=== PATIENT | female | born 1950 | race Caucasian/White ===

== ENCOUNTER 2018-04-24 11:10 | Emergency (ER) | payer MEDICARE, BC ==
[~2018-04-24] VITALS: Ht 157.5 cm; Wt 90.0 kg
[2018-04-24 12:48] LABS: BASOPHILS % (AUTO) 0.4 % (0-1); EOSINOPHILS # (AUTO) 0.2 X10'3 (0-0.9); EOSINOPHILS % (AUTO) 1.5 % (0-6); HEMATOCRIT 38.4 % (35.0-45.0); HEMOGLOBIN 12.8 g/dl (12.0-16.0); LYMPHOCYTES # (AUTO) 1.4 X10'3 (1.1-4.8); LYMPHOCYTES % (AUTO) 12.8 % (21-51); MEAN CORPUSCULAR HEMOGLOBIN 28.1 PG (27.0-31.0); MEAN CORPUSCULAR HGB CONC 33.2 % (33.0-36.5); MEAN CORPUSCULAR VOLUME 84.6 FL (78-98); MONOCYTES % (AUTO) 9.3 % (2-12); NEUTROPHILS # (AUTO) 8.4 X10'3 (1.8-7.7); PLATELET COUNT 516 X10'3 (140-440); RED BLOOD COUNT 4.54 X10'6 (4.20-5.60); RED CELL DISTRIBUTION WIDTH 15.8 % (11.5-14.5); WHITE BLOOD COUNT 11.1 X10'3 (4.5-11.0)
[2018-04-24 13:02] LABS: ALANINE AMINOTRANSFERASE 20 U/L (12-78); ALBUMIN 3.7 G/DL (3.4-5.0); ALBUMIN/GLOBULIN RATIO 0.9 (1.1-1.5); ALKALINE PHOSPHATASE 81 IU/L (46-116); ANION GAP 13 (8-16); ASPARTATE AMINO TRANSFERASE 21 U/L (10-37); BILIRUBIN,TOTAL 0.4 MG/DL (0.1-1.0); BLOOD UREA NITROGEN 16 MG/DL (7-18); BUN/CREATININE RATIO 20.5 (6.6-38.0); CALCIUM 9.2 MG/DL (8.5-10.1); CHLORIDE 96 MMOL/L (99-107); CREATININE 0.78 MG/DL (0.40-0.90); GLUCOSE 97 MG/DL (70-104); SODIUM 132 MMOL/L (135-145); TOTAL CARBON DIOXIDE 23.4 MMOL/L (24-32); eGFR 74 ML/MIN
[2018-04-24] MEDS ORDERED: normal saline 1000ML IV soln IVB ONE (13:10)
[2018-04-24 13:12] LABS: ETHANOL < 0.010 GM/DL (0.0-0.010)
[2018-04-24 15:05] LABS: CLARITY,URINE CLEAR (Clear); COLOR,URINE YELLOW (Yellow); GLUCOSE, URINE NEGATIVE (Neg); KETONES,URINE TRACE mg/dl (Neg); LEUKOCYTE ESTERASE ,URINE NEGATIVE (Neg); NITRITES, URINE NEGATIVE (Neg); OCCULT BLOOD,URINE NEGATIVE (Neg); PROTEIN,URINE NEGATIVE (Neg); UROBILINOGEN,URINE 0.2 E.U/dL (0.2-1.0)
[2018-04-24 15:06] LABS: UA COLLECTION TYPE CLN CATCH MIDSTREAM
[2018-04-24 15:46] LABS: URINE AMPHETAMINE SCREEN NEGATIVE (Neg); URINE BARBITUATE SCREEN NEGATIVE (Neg); URINE BENZODIAZEPINES SCREEN NEGATIVE (Neg); URINE CANNABINOID SCREEN NEGATIVE (Neg); URINE COCAINE SCREEN NEGATIVE (Neg); URINE METHADONE SCREEN NEGATIVE (Neg); URINE PHENCYCLIDINE SCREEN NEGATIVE (Neg)
[2018-04-24 15:47] LABS: URINE OPIATE SCREEN NEGATIVE (Neg)
[2018-04-24 17:28] LABS: VALPROATE 50 UG/ML (50-100)
[2018-04-24] MEDS ORDERED: LORazepam 2 mg/ml vial IV ONE (18:10)
[2018-04-24] MEDS ORDERED: ziprasidone 20mg capsule PO SCH (21:00)
[2018-04-25 05:13] VITALS: BP 115/68
[2018-04-25] MEDS ORDERED: divalproex sodium 500mg tablet.DR PO SCH (08:30)
[2018-04-25] MEDS ORDERED: ZIPR60CA2 PO (09:38)
[2018-04-25] MEDS ORDERED: DIVA-76 PO (09:38)
[2018-04-25] MEDS ORDERED: [UNRECOGNIZED DRUG - OTHER] VG (09:40)
[2018-04-25] MEDS ORDERED: LEVO75TA56 PO (09:43)
[2018-04-25] MEDS ORDERED: LEVO1CAP PO (09:43)
[2018-04-25] MEDS ORDERED: PROP10TA10 PO (09:56)
[2018-04-25] MEDS ORDERED: OLAN10TA3 PO (09:57)
== END 2018-04-25 11:21 ==
LOC: ER 11:10
DX: R42 Dizziness and giddiness (principal); T43.595A Adverse effect of other antipsychotics and neuroleptics, initial encounter; R41.0 Disorientation, unspecified; R44.3 Hallucinations, unspecified; F31.9 Bipolar disorder, unspecified; G89.29 Other chronic pain; Z88.0 Allergy status to penicillin; Z79.899 Other long term (current) drug therapy; Y92.89 Other specified places as the place of occurrence of the external cause
CPT/HCPCS: 36415; 80053; 80164; 80305; 80320; 81003; 82948; 84443; 85025; 96361; 96374; 99285; J2060; J7030

== ENCOUNTER 2018-04-25 08:50 | Inpatient (IN) | payer MEDICARE, BC ==
[~2018-04-25] VITALS: Ht 157.5 cm; Wt 80.9 kg
[2018-04-25] MEDS ORDERED: ZIPR60CA2 PO (09:38)
[2018-04-25] MEDS ORDERED: DIVA-76 PO (09:38)
[2018-04-25] MEDS ORDERED: [UNRECOGNIZED DRUG - OTHER] VG (09:40)
[2018-04-25] MEDS ORDERED: LEVO1CAP PO (09:43)
[2018-04-25] MEDS ORDERED: LEVO75TA56 PO (09:43)
[2018-04-25] MEDS ORDERED: PROP10TA10 PO (09:56)
[2018-04-25] MEDS ORDERED: OLAN10TA3 PO (09:57)
[2018-04-25] MEDS ORDERED: tuberculin, purif. prot. deriv. 5 units/0.1ml ID ONE (11:35)
[2018-04-25] MEDS ORDERED: acetaminophen 325mg tablet PO PRN ×2 (11:35)
[2018-04-25] MEDS ORDERED: magnesium hydroxide 30ml (MOM) UD suspension PO PRN (11:35)
[2018-04-25] MEDS ORDERED: mag hydrox/Alum hydrox/simeth 30ml oral suspension PO PRN (11:35)
--- NOTE | 2018-04-25 12:28 | NUR ---
The patient, MASTERS,MADHAVI Collins, 68 y/o, F admitted by ALEKSANDER REYNOLDS MD, was given written mental health rights. Pt admitted at 11:15. PT here for Anxiety, psychosis, Depression. Pt makes statements "Im not feeling well, scared, I feel weird, I dont understand." PT was discharged from [facility] on . Pt had some med changes while admitted there voluntarily. Pt signs in voluntarily here. Pt has history of Bipolar, depression,anxiety.
--- NOTE | 2018-04-25 13:32 | NUR ---
SW1:1 The undersigned spent time with the client as she was in bed shaking and reported being "scared". she expressed that she has no hope for life and wanting her life to "stop". The undersigned used quiet reassurance, grounding and present moment thought reframing with the client to attempt to lower her anxiety. The undersigned also put two warm blankets over her and brought her a pillow. The client demonstrated some insight by saying that only Gos can take her life, and she was able to cry in a response of suggesting her to "feel her suffering". Mei Liu [facility]
[2018-04-25 15:15] VITALS: BP 139/80
[2018-04-25] MEDS ORDERED: divalproex sodium 500mg tablet.DR PO SCH (20:00)
[2018-04-25] MEDS: ziprasidone 20mg capsule PO SCH (20:41)
[2018-04-25] MEDS ORDERED: OLANZapine 2.5MG tablet PO SCH (21:00)
[2018-04-25] MEDS ORDERED: divalproex sodium 250mg tablet PO ONE (21:45)
[2018-04-25] MEDS ORDERED: olanzapine 10mg tablet PO ONE (21:45)
--- NOTE | 2018-04-26 02:37 | NUR ---
Chief Complaint Pt makes statements "Im not feeling well, scared, I feel weird, I dont understand." Pt has history of Bipolar, depression,anxiety. Legal hold: Voluntary Client on voluntary DTS Report received from Siddharth marte with use of SBAR Why are they here: Diagnosis/presenting symptoms: PT here for Anxiety, psychosis, Depression. Assessment What has happened this shift: Pt visited for an hour with . very attentive pt appears anxious is tearful at times. Dr. Pugh spoke to and pt. 1:1 in pt room she remains anxious eyes wide open wringing hands. Pt verbalized hopelessness and said "I don't to live but I would never do anything because of god." Pt had some tremors when reaching for objects. Pt denies being aware of how long she had tremors. S/I, A/VH: denies Sleep: Sleeping at this time ADL's: independent Group attendance: none Were meds taken: yes Any med S/E none Mental Status Exam Appearance:well groomed Eye contact:poor Behavior:anxious Speech: pressured Mood:depressed Affect: anxious Thought process: Thought Content:logical Cognition:WNL Insight: fair Judgment:fair Interventions PRN's used: x1 xtra dose zyprexa for sleep. Therapeutic interventions: 1:1 allow pt to express feelings. Education on relaxation techniques to facilitate sleep. Q15 min safety checks. Restraints/seclusion/emergency medication: none Justification of Continued Inpatient Treatment: Pt anxious depressed verbalizing SI.
[2018-04-26] MEDS: levoTHYROXINE 75mcg tablet PO SCH (07:21)
[2018-04-26 08:00] VITALS: BP 136/78
[2018-04-26] MEDS: LEVOMEFOLATE PO SCH (08:00)
[2018-04-26] MEDS: ALGAL OIL PO SCH (08:00)
[2018-04-26] MEDS: divalproex sodium 250mg tablet PO SCH ×2 (08:10→20:39)
[2018-04-26 10:10] LABS: CHOL/HDL RATIO 5.7 (0.00-4.99); CHOLESTEROL 325 MG/DL (0-200); HDL CHOLESTEROL 57 MG/DL (35-60); LDL CHOLESTEROL 224 MG/DL (50-100); TRIGLYCERIDES 210 MG/DL (20-135)
--- NOTE | 2018-04-26 15:34 | NUR ---
Nursing Progress Note: Chief Complaint: Patient states passive suicidal ideation. She no longer wants to live due to hopelessness and helplessness "There are no positives anymore." Legal hold:none Client on voluntary status for DTS Report received from Divine marte with use of SBAR. Why are they here:Patient is severly depressed and has given up all hope of relief from her bipolar symptoms. Diagnosis/presenting symptoms: Bipolar, low energy, hopeless, helpless Assessment What has happened this shift:patient participated in assessment for some time and then became irritated stating. "No questions anymore. No more questions." S/I, H/I:passive SI A/VH: denies Sleep:several naps ADL's: Able to perform independently Group attendance:"I dont want to go to group. It doesn't help." Were meds taken:Yes Any med S/E: no Mental Status Exam Appearance:clean and neat, appears younger than sated age Eye contact:poor Behavior: Isolates in room. Talks to self. Speech:Soft Mood:Depressed, hopeless, helpless Affect:flat Thought process: linear Thought Content:hopeless, helpless Cognition:intact Insight:poor Judgment:poor Interventions PRN's used:none Therapeutic interventions:Q15 interventions, one to one assessment, medication education, active listening, milieu Restraints/seclusion/emergency medication:none Justification of Continued Inpatient Treatment: observation and medication adjustment
--- NOTE | 2018-04-26 17:39 | NUR ---
AA (Activity Assessment) was completed by the undersigned. Patient was compliant yet presented as if answering the questions was overwhelming, admitting "I am having difficulty focusing right now." Tova Buchanan M.A., TRIMMING ASSEMBLER #[id number] [facility] Art Therapist Addendum: 04/26/18 at 1742 by Tova Buchanan SS Amended: Links added.
[2018-04-26 20:00] VITALS: BP 123/80
[2018-04-26] MEDS: ziprasidone 20mg capsule PO SCH (20:39)
[2018-04-26] MEDS: OLANZapine 2.5MG tablet PO SCH (20:39)
[2018-04-26] MEDS ORDERED: OLANZapine 2.5MG tablet PO ONE ×2 (22:05→23:05)
--- NOTE | 2018-04-27 05:50 | NUR ---
Chief Complaint Pt makes statements "Im not feeling well, scared, I feel weird, I dont understand." Pt has history of Bipolar, depression,anxiety. Legal hold: Voluntary Client on voluntary DTS Report received from Siddharth marte with use of SBAR Why are they here: Diagnosis/presenting symptoms: PT here for Anxiety, psychosis, Depression. Assessment Pt appeared slightly more relaxed this shift. Pt visited for an hour with . very attentive pt appears anxious is tearful at times. 1:1 in pt room Pt verbalized hopelessness she does not think anything is going to make her feel better. She is tired of living with her bipolar but she is going to keep trying "what choice do I have" S/I, A/VH: denies Sleep: Sleeping at this time ADL's: independent Group attendance: none Were meds taken: yes Any med S/E none Mental Status Exam Appearance:well groomed Eye contact:poor Behavior:anxious Speech: pressured Mood:depressed Affect: anxious Thought process: Thought Content:logical Cognition:WNL Insight: fair Judgment:fair Interventions PRN's used: x2 xtra dose zyprexa for sleep. Therapeutic interventions: 1:1 allow pt to express feelings. Education on relaxation techniques to facilitate sleep. Q15 min safety checks. Restraints/seclusion/emergency medication: none Justification of Continued Inpatient Treatment: Pt anxious depressed verbalizing SI.
[2018-04-27 07:00] VITALS: BP 140/70
[2018-04-27] MEDS: LEVOMEFOLATE PO SCH (07:20)
[2018-04-27] MEDS: ALGAL OIL PO SCH (07:20)
[2018-04-27] MEDS: divalproex sodium 250mg tablet PO SCH ×2 (08:05→21:08)
[2018-04-27] MEDS: levoTHYROXINE 75mcg tablet PO SCH (08:06)
--- NOTE | 2018-04-27 13:35 | NUR ---
Nursing Progress Note: Chief Complaint: Loss of will to live, anxiety, passive suicidal ideation Legal hold:[VOL] Client on voluntary status for DTS Report received from nurse with use of SBAR[]. Yes, Katie Why are they here:[Passive suicidal ideation, anxiety]. Diagnosis/presenting symptoms:[Anxiety, suicidal ideation] Assessment What has happened this shift:[Patient continues to state suicidal ideation. "I am ready to go home to be with God. I don't awnt to be here anymore. Nothing helps" Asked connien if she would attempt to harm herself "Not while I am here."] S/I, H/I:[SI] A/VH: [NO] Sleep:[Poor] ADL's:[Not showering or changhing clothes] Group attendance:[NO "It doesn't help"] Were meds taken:[YES] Any med S/E[NO] Mental Status Exam Appearance:[Terrified, Anxious, Depressed] Eye contact:[Fair] Behavior:[Anxious] Speech:[Poverty] Mood:[Depressed, anxious] Affect:[Flat] Thought process:[[place]] Thought Content:[SI] Cognition:[Intact] Insight:[Poor] Judgment:[Poor] Interventions PRN's used:[NO] Therapeutic interventions:[Active listening, one to one assessment, Q15s, educate on coping skills and self care] Restraints/seclusion/emergency medication:[NO] Justification of Continued Inpatient Treatment:[Medication adjustments and observation and safety]
[2018-04-27 20:08] VITALS: BP 133/81
[2018-04-27] MEDS: ziprasidone 20mg capsule PO SCH (21:07)
[2018-04-27] MEDS: OLANZapine 2.5MG tablet PO SCH (21:07)
[2018-04-28] MEDS ORDERED: OLANZapine 2.5MG tablet PO ONE (00:15)
--- NOTE | 2018-04-28 02:54 | NUR ---
Nursing Progress Note: Chief Complaint Pt makes statements about not wanting to live. Pt has history of Bipolar, depression,anxiety. Legal hold: Voluntary Client on voluntary DTS Report received from Siddharth marte with use of SBAR Why are they here: Diagnosis/presenting symptoms: PT here for Anxiety, psychosis, Depression. Assessment What has happened this shift: Pt in bed at start of shift. Got up to visit for an hour with . Went right back to bed. 1:1 in pt room pt is very withdrawn no or one word responses to questions. Pt admitted to SI but did not answer questions about a plan. Encouraged pt to attend groups, no response. Given repeat x1 2.5 Zyprexa at HS for sleep. S/I, A/VH: denies Sleep: Sleeping at this time ADL's: independent Group attendance: none Were meds taken: yes Any med S/E none Mental Status Exam Appearance:well groomed Eye contact:poor Behavior:anxious Speech: pressured Mood:depressed Affect: anxious Thought process: Thought Content:logical Cognition:WNL Insight: fair Judgment:fair Interventions PRN's used: x1 repeat dose zyprexa for sleep. Therapeutic interventions: 1:1 Assess mood allow pt to express feelings. Q15 min safety checks. Restraints/seclusion/emergency medication: none Justification of Continued Inpatient Treatment: Pt anxious depressed verbalizing SI.
[2018-04-28 07:00] VITALS: BP 143/75
[2018-04-28] MEDS: levoTHYROXINE 75mcg tablet PO SCH (07:32)
[2018-04-28] MEDS: METHYLFOLATE 15 MG PO SCH (07:32)
[2018-04-28] MEDS: divalproex sodium 250mg tablet PO SCH (07:33)
--- NOTE | 2018-04-28 15:17 | NUR ---
Nursing Progress Note Chief Complaint: Patient discharged from [facility] in March, underwent medication changes and became destabilized. Legal hold: Voluntary Client on voluntary for DTS. Report received from Katie with use of SBAR. Why are they here: Safety and stabilization. Diagnosis/presenting symptoms: SI. Bipolar depression/delerium. Assessment What has happened this shift: Went into assess patient, bundled up in blankets, fearful appearance. Patient states that being in this dept. is a stressor. Patient refuses to answer questions. SW informed RN that patient asked her for poison today. S/I, H/I: Passive SI. A/VH: Denies. Sleep: States sleep disturbance. ADL's: Independent. Group attendance: None. Were meds taken: Compliant. Any med S/E None. Mental Status Exam Appearance: Obese, fearful appearing woman lying in bed. Eye contact: None. Behavior: Withdrawn, isolative. Speech: Clear, pressured. Mood: Fearful, anxious. Affect: Flat. Thought process: Constricted. Thought Content: SI. Cognition: Impaired. Insight: Impaired. Judgment: Impaired. Interventions PRN's used: None. Therapeutic interventions: 1:1 to assess for severity of symptoms. Medication administration and monitored for side effects to medications. q15" safety checks. Restraints/seclusion/emergency medication: None. Justification of Continued Inpatient Treatment: Patient verbalizes SI. Patient would be high risk of rehospitalization before stabilized.
[2018-04-28 20:02] VITALS: BP 103/62
[2018-04-28] MEDS: ziprasidone 20mg capsule PO SCH (20:27)
[2018-04-28] MEDS: OLANZapine 2.5MG tablet PO SCH (20:27)
[2018-04-28] MEDS: divalproex sod 125mg tablet.DR PO SCH (20:28)
--- NOTE | 2018-04-28 23:38 | NUR ---
Nursing Progress Note Chief Complaint: Pt BIB due to behavioral changes, pt is fearful and having passive s/i Legal hold: Voluntary Client on voluntary for DTS. Report received from Veronica FAITH Why are they here: Evaluation and stabilization Diagnosis/presenting symptoms: SI. Bipolar depression Assessment What has happened this shift: Pt was laying in bed at change of shift. 1:1 assessment completed at bedside. Pt reports not being able to eat because she hasnt been hungry for 3 days. Pt is concerned about not being able to sleep, pt was med compliant, observed q15 min for safety. S/I, H/I: pt denies A/VH: Denies. Sleep: pt is concerned she wont be able to sleep but fell asleep shortly after taking her nighttime medications. ADL's: Independent. Group attendance: None. Pt states "I didnt go because the doctor said I dont have to." Were meds taken: Compliant. Any med S/E None. none reported or observed Mental Status Exam Appearance: adequately groomed, Eye contact: good Behavior: Withdrawn, isolative. Speech: Clear, pressured. Mood: Fearful, anxious, depressed Affect: constricted Thought process: linear, guarded Thought Content: Pt is reluctant to talk stating "kwan already told everyone this." Cognition: Impaired. Insight: Impaired. Judgment: Impaired. Interventions PRN's used: None. Therapeutic interventions: 1:1 assessment, q15 min checks for safety. . Restraints/seclusion/emergency medication: None. Justification of Continued Inpatient Treatment: Patient would be high risk of rehospitalization Addendum: 04/29/18 at 0234 by Barbara Coon RN zyprexa repeat dose given as pt could not sleep.
[2018-04-29] MEDS ORDERED: OLANZapine 2.5MG tablet PO ONE (02:30)
[2018-04-29 06:49] VITALS: BP 160/80
[2018-04-29 07:00] VITALS: BP 161/81
[2018-04-29] MEDS: levoTHYROXINE 75mcg tablet PO SCH (07:25)
[2018-04-29] MEDS: divalproex sod 125mg tablet.DR PO SCH ×2 (07:25→20:21)
[2018-04-29] MEDS: METHYLFOLATE 15 MG PO SCH (07:49)
--- NOTE | 2018-04-29 15:53 | NUR ---
Nursing Progress Note Chief Complaint: Patient was admitted to [facility] about a month ago for bipolar symptoms and came out overmedicated and decompensated. She was then seen by Dr. Koch and was placed on "med holiday". She is now admitted for psychiatric stabilization. Legal hold: None. Client on voluntary status for GD/DTS. Report received from Tasha with use of SBAR. Why are they here: Safety and stabilization. Diagnosis/presenting symptoms: Bipolar/delerium. Assessment What has happened this shift: Patient stays in bed most of the day. She did get up and eat 75% of her lunch. She did sit in art therapy for 30 minutes today before returning to her room. S/I, H/I: Patient affirms that she is suicidal without plan. A/VH: Denies. Sleep: Awake during daytime. ADL's: Needs prompting. Group attendance: Sat in art therapy for 30 mins today. Were meds taken: Compliant. Any med S/E Patient has tremulousness, especially of right hand. Mental Status Exam Appearance: Short, obese woman with strawberry-blonde hair wearing green scrubs. Eye contact: Avoidance. Behavior: Primarily lays in bed. Speech: Soft. Mood: Depressed. Affect: Frightened. Thought process: Undetermined. Thought Content: SI. "I can't eat, I'm too fat". Cognition: Slowed. Impaired. Insight: Poor. Judgment: Impaired. Interventions PRN's used: None. Therapeutic interventions: 1:1 to assess for severity of symptoms. Medication administration and monitored for side effects. Q15" checks for patient safety. Restraints/seclusion/emergency medication: None. Justification of Continued Inpatient Treatment: Patient is suicidal, depressed, anxious and needs psychiatric stabilization. Patient would be at high risk for rehospitalization if discharged before stable.
[2018-04-29 19:00] VITALS: BP 114/68
[2018-04-29] MEDS: OLANZapine 2.5MG tablet PO SCH ×2 (20:21→21:17)
[2018-04-29] MEDS: ziprasidone 20mg capsule PO SCH (20:22)
--- NOTE | 2018-04-30 01:05 | NUR ---
Nursing Progress Note Chief Complaint: Pt BIB due to behavioral changes, pt is fearful and having passive s/i Legal hold: Voluntary Client on voluntary for DTS. Report received from Veronica FAITH Why are they here: Evaluation and stabilization Diagnosis/presenting symptoms: SI. Bipolar depression Assessment What has happened this shift: Pt was laying in bed at change of shift, 1:1 assessment completed at bedside. Pt appears anxious, when asked about her mood she shakes her head no and doesn't answer. Pt reports a poor appetite stating "I haven't been hungry since Zoey got here" Pt reports difficulty sleeping due to noise, she is trying ear plugs tonight. Pt denies s/i, is med compliant and observed q15 min for safety. Pt spent the evening visiting w/her . S/I, H/I: pt denies A/VH: Denies. Sleep: Pt reports she has not been sleeping well ADL's: Independent. Group attendance: No groups in the evening Were meds taken: Yes Any med S/E: None reported or observed Mental Status Exam Appearance: adequately groomed, Eye contact: good Behavior: Withdrawn, isolative. Speech: Clear, pressured. Mood: Fearful, anxious, depressed Affect: constricted Thought process: linear, thought blocking Thought Content: Cognition: Impaired. Insight: Impaired. Judgment: Impaired. Interventions PRN's used: none Therapeutic interventions: 1:1 assessment, q15 min checks for safety. . Restraints/seclusion/emergency medication: None. Justification of Continued Inpatient Treatment: Patient would be high risk of rehospitalization Addendum: 04/29/18 at 0234 by Barbara Coon RN zyprexa repeat dose given as pt could not sleep.
[2018-04-30 08:00] VITALS: BP 114/68
[2018-04-30] MEDS: METHYLFOLATE 15 MG PO SCH (08:03)
[2018-04-30] MEDS: divalproex sod 125mg tablet.DR PO SCH ×2 (08:03→20:31)
[2018-04-30] MEDS: levoTHYROXINE 75mcg tablet PO SCH (08:03)
--- NOTE | 2018-04-30 16:03 | NUR ---
Nursing Progress Note Chief Complaint: Patient was admitted to [facility] about a month ago for bipolar symptoms and came out overmedicated and decompensated. She was then seen by Dr. Koch and was placed on "med holiday". She is now admitted for psychiatric stabilization. Legal hold: None. Client on voluntary status for GD/DTS. Report received from Tasha with use of SBAR. Why are they here: Safety and stabilization. Diagnosis/presenting symptoms: Bipolar/delirium. Assessment What has happened this shift: Patient was asleep at change of shift. Patient appears anxious with eye wide open. Patient's hair is disheveled and patient stayed in her pajamas all day. Patient missed groups today and was in bed asleep. RN moved patient next door due to her original roommate being too loud. S/I, H/I: Patient states that she is suicidal without plan. Patient denies H/I. A/VH: Denies. Sleep: Pt napped morning and afternoon. ADL's: Needs prompting. Group attendance: Patient did not go to groups today. Were meds taken: Compliant. Any med S/E Patient has tremulousness, especially of right hand. Mental Status Exam Appearance: Short, obese woman with strawberry-blonde hair wearing flannel pajamas. Eye contact: Avoidance. Behavior: Primarily lays in bed. Speech: Soft. Mood: Depressed. Affect: Anxious. Thought process: Undetermined. Thought Content: SI. Cognition: Slowed. Impaired. Insight: Poor. Judgment: Impaired. Interventions PRN's used: None. Therapeutic interventions: 1:1 to assess for severity of symptoms. Medication administration and monitored for side effects. Q15" checks for patient safety. Restraints/seclusion/emergency medication: None. Justification of Continued Inpatient Treatment: Patient is suicidal, depressed, anxious and needs psychiatric stabilization. Patient would be at high risk for rehospitalization if discharged before stable.
[2018-04-30 20:00] VITALS: BP 122/72
[2018-04-30] MEDS: OLANZapine 2.5MG tablet PO SCH (20:31)
[2018-04-30] MEDS: ziprasidone 20mg capsule PO SCH (20:31)
--- NOTE | 2018-04-30 23:47 | NUR ---
Nursing Progress Note Chief Complaint: Pt BIB due to behavioral changes, pt is fearful and having passive s/i Legal hold: Voluntary Client on voluntary for DTS. Report received from Shae FAITH Why are they here: Evaluation and stabilization Diagnosis/presenting symptoms: SI. Bipolar depression Assessment What has happened this shift: Pt was laying in bed at change of shift, 1:1 assessment completed at bedside. Pt denies s/i, states "I am feeling a little better today. I feel like I have more energy today." Pt is hopeful that she will get better sleep tonight now that she has a new room. Pt states her goal here is to "balance out the bipolar" pt states she didnt go to groups today because "it doesnt seem to help." Suggested pt attempt to attend at least one group tomorrow. Pt reports she hasnt had much of an appetite since she's been here. Pt spent evening visiting w/her tonjaskaran. Pt was med compliant and observed q15 min for safety. S/I, H/I: pt denies A/VH: Denies. Sleep: Pt continues to report she hasnt been sleeping well ADL's: Independent. Group attendance: No groups in the evening Were meds taken: Yes Any med S/E: None reported or observed Mental Status Exam Appearance: adequately groomed, Eye contact: good Behavior: Isolates to her room unless visiting w/ in group room Speech: Clear, pressured. Mood: Fearful, anxious, depressed Affect: constricted Thought process: linear, thought blocking Thought Content: Cognition: Impaired. Insight: Impaired. Judgment: Impaired. Interventions PRN's used: none Therapeutic interventions: 1:1 assessment, q15 min checks for safety. . Restraints/seclusion/emergency medication: None. Justification of Continued Inpatient Treatment: Patient would be high risk of rehospitalization
[2018-05-01 08:00] VITALS: BP 132/73
[2018-05-01] MEDS: divalproex sod 125mg tablet.DR PO SCH ×2 (08:32→20:18)
[2018-05-01] MEDS: levoTHYROXINE 75mcg tablet PO SCH (08:32)
[2018-05-01] MEDS: METHYLFOLATE 15 MG PO SCH (08:39)
--- NOTE | 2018-05-01 11:14 | NUR ---
Pt admitted to [facility] for depression. 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 Currently on regular diet with documented PO intake 100% meeting nutrient needs. LBM 04/29. No edema or wounds. No nutrition diagnosis at this time. Will continue to follow. Recommendations: 1) Continue with regular diet 2) MVI, Thiamine, Folic acid for Etoh hx 3) Weekly wt Addendum: 05/01/18 at [address] Amended: Links added. Addendum: 05/01/18 at [address] Disregard. Wrong patient
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
--- NOTE | 2018-05-01 16:16 | NUR ---
Degreasing Wheel Operator 1:1 The undersigned social media specialist saw patient briefly up and walking and asked if I could meet with her after the group. After group went to meet with patient individually and patient declined wanting to meet today. Patient was laying in her bed in the dark with her eyes open. Plan= Collaborate with treatment team/ attempt to meet 1:1 on Thursday Demi DANIELS
[2018-05-01 19:00] VITALS: BP 112/75
[2018-05-01] MEDS: cloNIDine 0.1 mg tablet PO PRN (20:18)
[2018-05-01] MEDS: OLANZapine 2.5MG tablet PO SCH (20:18)
[2018-05-01] MEDS: ziprasidone 20mg capsule PO SCH (20:18)
[2018-05-01] MEDS ORDERED: OLANZapine 2.5MG tablet PO ONE (23:30)
--- NOTE | 2018-05-02 02:22 | NUR ---
RN progress note: Chief Complaint: "I was getting manic, so my brought me here." Legal hold: None Client on voluntary status for DTS. Report received from nurse Kaufman with use of SBAR. Why are they here: The patient was having mental and behavioral changes, so was brought in by to be evaluated and treated. Diagnosis/presenting symptoms:Bipolar with gelacio, paranoia, delirium, and possible effects from PTSD. Assessment: What has happened this shift: The patient was found in the hallway at her room. She agreed to 1:1 at her bedside while waiting for her . The patient initially agreed to talk to me, but was only able to answer closed ended questions due to thought blocking. She had a visit from her then went to bed. S/I, H/I: Passive SI. Denies HI. A/VH: Denies Sleep: Went to sleep after her 's visit. ADL's: independent with prompting. Group attendance: No groups tonight. Were meds taken: Compliant Any med S/E: None noted. Mental Status Exam Appearance: Short, overweight woman in street clothes that avoids eye contact and appears fearful. Eye contact: Poor Behavior: Standing in the hallway waiting for her to visit. Speech: Clear, low volume. Mood: Depressed Affect: Flat, constricted at times. Thought process: Blocked Thought Content: Preoccupied with going home, "where I can heal." Cognition: A/O x3 Insight: Poor Judgment: Intact Interventions PRN's used: Zyprexa for anxiety and insomnia. Therapeutic interventions: 1:1, positive reinforcement, medication administration, q15 minute visual checks. Restraints/seclusion/emergency medication: None. Justification of Continued Inpatient Treatment: The patient's response to medication changes is inconsistent, and she is not yet stable. She would be at risk for readmission if discharged before she is stabilized.
[2018-05-02 07:32] VITALS: BP 138/76
[2018-05-02] MEDS: levoTHYROXINE 75mcg tablet PO SCH (07:59)
[2018-05-02] MEDS: METHYLFOLATE 15 MG PO SCH (07:59)
[2018-05-02] MEDS: divalproex sod 125mg tablet.DR PO SCH ×2 (07:59→20:31)
[2018-05-02] MEDS: cloNIDine 0.1 mg tablet PO PRN ×2 (08:00→20:32)
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
--- NOTE | 2018-05-02 14:58 | NUR ---
Nursing Progress Note Chief Complaint: Patient was admitted to [facility] about a month ago for bipolar symptoms and came out overmedicated and decompensated. She was then seen by Dr. Koch and was placed on "med holiday". She is now admitted for psychiatric stabilization. Legal hold: None. Client on voluntary status for GD/DTS. Report received from Benjamín with use of SBAR. Why are they here: Safety and stabilization. Diagnosis/presenting symptoms: Bipolar/delirium. Assessment What has happened this shift: Patient sleeping at change of shift. Patient was up for breakfast. Patient looks better this morning and RN gave patient her clonidine with her regular medications. After breakfast patient was walking around in the same pajamas she has been wearing and RN asked patient if she wants to take a shower and patient stated yes. Patient took a shower today and changed into clean clothes. Patient always looks a little nervous but when addressed, she answers and does not clam up. Patient brought into Dr Pugh's office to speak to . Patient also in the group room watching a moving with other patients. Patient continues on Q 15 minute checks. A/VH: Denies. Sleep: Pt napped morning and afternoon. ADL's: Needs prompting. Group attendance: No groups but did attend the movie. Were meds taken: Compliant. Any med S/E: none noted. Mental Status Exam Appearance: Short, obese woman with strawberry-blonde hair wearing flannel pajamas. Eye contact: Avoidance. Behavior: Primarily lays in bed. Speech: Soft. Mood: Depressed. Affect: Anxious. Thought process: Undetermined. Thought Content: SI. Cognition: Slowed. Impaired. Insight: Poor. Judgment: Impaired. Interventions PRN's used: None. Therapeutic interventions: 1:1 to assess for severity of symptoms. Medication administration and monitored for side effects. Q15" checks for patient safety. Restraints/seclusion/emergency medication: None. Justification of Continued Inpatient Treatment: Patient is suicidal, depressed, anxious and needs psychiatric stabilization. Patient would be at high risk for rehospitalization if discharged before stable.
[2018-05-02 19:38] VITALS: BP 130/69
[2018-05-02] MEDS: ziprasidone 20mg capsule PO SCH (20:32)
[2018-05-02] MEDS: OLANZapine 2.5MG tablet PO SCH (20:32)
--- NOTE | 2018-05-03 03:27 | NUR ---
RN progress note: Chief Complaint: "I was getting manic, so my brought me here." Legal hold: None Client on voluntary status for DTS. Report received from nurse Kaufman with use of SBAR. Why are they here: The patient was having mental and behavioral changes, so was brought in by to be evaluated and treated. Diagnosis/presenting symptoms:Bipolar with gelacio, paranoia, delirium, and possible effects from PTSD. Assessment: What has happened this shift: The patient was seen in her room for 1:1 assessment. She is much better tonight. She's answering questions appropriately and giving good eye contact. She looks far less paranoid and fearful. She has Clonidine ordered q4 hours prn for anxiety, and she agrees that it's helpful. "I don't know what happened yesterday, but I feel better today. No flashbacks today." The patient only came out of her room for visit with her . She was already lying down when her HS meds were administered. She has been sleeping all night. S/I, H/I: Passive SI. Denies HI. A/VH: Denies Sleep: Has been asleep since HS med pass. ADL's: independent with prompting. Group attendance: No groups tonight. Were meds taken: Compliant Any med S/E: None noted. Mental Status Exam Appearance: Short, overweight woman in street clothes with [place] blonde hair that appears as if she washed it today.. Eye contact: Good Behavior: Standing in the hallway waiting for her to visit. Speech: Clear, low volume. Mood: "Hopeful" Affect: Blunted. Thought process: Blocked Thought Content: "I think I can heal better at home." Cognition: A/O x3 Insight: Fair Judgment: Intact Interventions PRN's used: Clonidine for anxiety. Therapeutic interventions: 1:1, positive reinforcement, medication administration, q15 minute visual checks. Restraints/seclusion/emergency medication: None. Justification of Continued Inpatient Treatment: The patient's response to medication changes is inconsistent, and she is not yet stable. She would be at risk for readmission if discharged before she is stabilized.
[2018-05-03 07:45] VITALS: BP 155/78
[2018-05-03] MEDS: levoTHYROXINE 75mcg tablet PO SCH (08:23)
[2018-05-03] MEDS: METHYLFOLATE 15 MG PO SCH (08:23)
[2018-05-03] MEDS: divalproex sod 125mg tablet.DR PO SCH ×2 (08:23→20:27)
[2018-05-03] MEDS: cloNIDine 0.1 mg tablet PO SCH (08:23)
--- NOTE | 2018-05-03 10:11 | NUR ---
Nutrition consult re: vegetarian diet. Discussed some vegetarian options with the bedside RN who reports patient wanting vegetarian soups as well. D/w dietary to send alternating vegetable broth and tomato soup with lunch and dinner. Addendum: 05/03/18 at [address] Amended: Links added.
--- NOTE | 2018-05-03 15:27 | NUR ---
RN progress note: Chief Complaint: "I was getting manic, so my brought me here." Legal hold: None Client on voluntary status Report received from nurse Benjamín with use of SBAR. Why are they here: The patient was having mental and behavioral changes, so was brought in by to be evaluated and treated. Diagnosis/presenting symptoms:Bipolar with gelacio, paranoia, delirium, and possible effects from PTSD. Assessment: What has happened this shift: Pt out of room for meals and group, she is not eating much. Spoke with automatic gluing machine operator about vegetarian options. Pt is quiet, isolates to self. Attempted 1:1 assessment but had difficulty obtaining answers due to apparent thought blocking; pt seems to understand the questions but is unable or unwilling to respond. Pt presents with a blank almost lost expression on her face, her features reveal little emotion. When asked pt if she was having a bad day, she was able to respond with, "I'm not functioning" she was unable to go into detail. When asked if she slept, she replied, "okay." Offered pt prn clonidine though she did not seem receptive to taking it. No unsafe behaviors noted. S/I, H/I: Unable to assess; pt was unable to answer most assessment questions today. A/VH: No indications that pt is responding to hallucinations, pt unable to answer questions Sleep: Pt slept per noc shift report. ADL's: Independent with encouragement/prompts. Group attendance: Pt attends groups with minimal participation Were meds taken: Pt took routine meds. Any med S/E: No complaints or obvious adverse reactions to meds. Mental Status Exam Appearance: Clean Eye contact: Poor Behavior: isolative, restricted Speech: minimal verbalizations, soft, clear Mood: Depressed Affect: Flat, restricted Thought process: Difficulty focusing, thought blocking Thought Content: Seems fixated or stuck in her perception that she is unable to function Cognition: A/O x4 Insight: Poor Judgment: Fair Interventions PRN's used: None Therapeutic interventions: 1:1, medication administration/monitoring, reassurance that she is safe here, Q 15 minute checks Restraints/seclusion/emergency medication: None. Justification of Continued Inpatient Treatment: Pt is not stable , symptoms continue to fluctuate, needs continued medication adjustment and monitoring. She would be at risk for readmission if discharged before she is stabilized.
[2018-05-03 19:53] VITALS: BP 123/72
[2018-05-03] MEDS: ziprasidone 20mg capsule PO SCH (20:28)
[2018-05-03] MEDS: OLANZapine 2.5MG tablet PO SCH (20:28)
--- NOTE | 2018-05-04 01:33 | NUR ---
RN progress note: Chief Complaint: "I was getting manic, so my brought me here." Legal hold: None Client on voluntary status for DTS. Report received from nurse Dozier with use of SBAR. Why are they here: The patient was having mental and behavioral changes, so was brought in by to be evaluated and treated. Diagnosis/presenting symptoms:Bipolar with gelacio, paranoia, delirium, and possible effects from PTSD. Assessment: What has happened this shift: The patient was seen in her room for 1:1 assessment. She was lying in bed sleeping. she awoke easily. The patient was able to answer questions, but was having thought blocking. I asked if she was understanding me and she said, "yes, I'm having trouble getting words out." Her affect is flat, but her eyes look fearful. She then said she didn't feel like trying to talk tonight. She remained isolated to her room all night. S/I, H/I: Passive SI. Denies HI. A/VH: Denies Sleep: Okay. ADL's: independent with prompting. Group attendance: No groups tonight. Were meds taken: Compliant Any med S/E: None noted. Mental Status Exam Appearance: Short, overweight woman in street clothes with [place] blonde hair that is disheveled from being in bed all day. Eye contact: Good Behavior: Laying in bed under the covers. Speech: Clear, low volume. Mood: "Not good." depressed Affect: Blunted, constricted, fearful, scared. Thought process: Blocked Thought Content: "I can't think right." Cognition: A/O Insight: Fair Judgment: Intact Interventions PRN's used: Clonidine for anxiety. Therapeutic interventions: 1:1, positive reinforcement, medication administration, q15 minute visual checks. Restraints/seclusion/emergency medication: None. Justification of Continued Inpatient Treatment: The patient's response to medication changes is inconsistent, and she is not yet stable. She would be at risk for readmission if discharged before she is stabilized.
[2018-05-04 07:50] VITALS: BP 140/90
[2018-05-04] MEDS: divalproex sod 125mg tablet.DR PO SCH ×2 (07:58→21:12)
[2018-05-04] MEDS: atorvastatin 20mg tablet PO SCH (07:59)
[2018-05-04] MEDS: levoTHYROXINE 75mcg tablet PO SCH (07:59)
[2018-05-04] MEDS: cloNIDine 0.1 mg tablet PO SCH (07:59)
[2018-05-04] MEDS: METHYLFOLATE 15 MG PO SCH (08:26)
--- NOTE | 2018-05-04 17:20 | NUR ---
Nursing Progress Note Chief Complaint: Jess. Delirium Legal hold: None Client on voluntary DTS. Report received from Katie with use of SBAR. Why are they here: To provide for a safe and therapeutic environment where pt can be psychologically stable.. Diagnosis/presenting symptoms: Bipolar. PTSD. Anxiety. Assessment What has happened this shift: Patient greeted this RN by name. She states that she is not doing good. Has not eaten since lunch yesterday, dietary consult ordered. Patient believes she is "fat". Encouraged patient to eat to keep up energy. S/I, H/I: Denies. A/VH: Denies. Sleep: Slept most of the day. ADL's: Independent with prompting. Group attendance: No groups attended. Were meds taken: Med compliant. Any med S/E: None. Mental Status Exam Appearance: Short, obese, strawberry blonde female, appears frightened. Eye contact: Stares blankly. Behavior: Fatigued. Sleeping. Speech: Soft, clear. Mood: Depressed. Affect: Frightened. Thought process: Pausity of thought. Blocked. Thought Content: Pt. feels unwell. Cognition: Alert and oriented. Insight: Poor. Judgment: Impaired. Interventions PRN's used: None. Therapeutic interventions: 1:1 to assess for severity of symptoms. Ordered diet consult. q15" safety checks. Restraints/seclusion/emergency medication: None. Justification of Continued Inpatient Treatment: Patient continues to be psychologically unstable, fearful. If patient were discharged she would be at high risk for readmission.
[2018-05-04 20:12] VITALS: BP 110/73
[2018-05-04] MEDS: prazosin 1mg capsule PO SCH (21:13)
[2018-05-04] MEDS: OLANZapine 2.5MG tablet PO SCH (21:13)
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
[2018-05-05 08:00] VITALS: BP 126/66
[2018-05-05] MEDS: METHYLFOLATE 15 MG PO SCH (08:00)
[2018-05-05] MEDS: levoTHYROXINE 75mcg tablet PO SCH (08:35)
[2018-05-05] MEDS: atorvastatin 20mg tablet PO SCH (08:35)
[2018-05-05] MEDS: divalproex sod 125mg tablet.DR PO SCH (08:35)
[2018-05-05] MEDS: cloNIDine 0.1 mg tablet PO SCH (08:35)
[2018-05-05] MEDS ORDERED: tuberculin, purif. prot. deriv. 5 units/0.1ml ID ONE (14:00)
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
[2018-05-05 19:50] VITALS: BP 122/78
[2018-05-05] MEDS ORDERED: LORazepam 1 MG tablet PO ONE (20:40)
[2018-05-05] MEDS ORDERED: LORazepam 1 MG tablet PO PRN (20:45)
[2018-05-05] MEDS: prazosin 1mg capsule PO SCH (21:15)
[2018-05-05] MEDS: OLANZapine 2.5MG tablet PO SCH (21:15)
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
[2018-05-06 08:00] VITALS: BP 148/80
[2018-05-06] MEDS: METHYLFOLATE 15 MG PO SCH (08:07)
[2018-05-06] MEDS: levoTHYROXINE 75mcg tablet PO SCH (08:09)
[2018-05-06] MEDS: atorvastatin 20mg tablet PO SCH (08:09)
[2018-05-06] MEDS: cloNIDine 0.1 mg tablet PO SCH (08:09)
--- NOTE | 2018-05-06 15:34 | NUR ---
Relationship Specialist 1:1 The undersigned clinician met individually with patient per doctors request and introduced using bilateral sound and eye position as a resource for her to lower her emotional distress. Patient reports feeling the distress mostly in her head and reports it to be an 8 on a scale of 0-10. Collaborated with treatment team. Plan= meet for individual session tomorrow. Demi Correa [facility]ITAL[facility]
--- NOTE | 2018-05-06 17:30 | NUR ---
Nursing Note: Chief Complaint: Anxiety and psychosis Legal hold: Voluntary Client on voluntary DTS Report received from nurse with use of SBAR: MARCELL Martin Why are they here: Pt. voluntarily admitted r/t to chronic Bipolar D/O with recent behavioral changes r/t unknown etiology. Diagnosis/presenting symptoms: Pt. withdrawn/irritated, unable to complete MH assessment. She presents as depressed and anxious. Assessment What has happened this shift: Received patient lying awake in bed. Patient up for meals and then return to her bed after breakfast. Patient refused morning group and remained lying in her bed. Patient appears to salt block at times when interacting with someone. Patient did state to RN, I just wish I could function better patient continues to endorse both depression and suicidal ideation and stated I wish these years it could just be over patient encouraged to attend afternoon group to get her mind off of things. Patient agreed and did attend the afternoon group with encouragement. Patient was given a PRN of Ativan at 12:30 which patient stated made her a little sleepy, but did decrease her anxiety and she appeared to answer questions more readily afterwards. S/I, H/I: Pt. withdrawn/and unable to answer at times. A/VH: Pt. withdrawn Sleep: Patient lays down during the day but RN does not believe patient actually naps. ADL's: Independent Group attendance: Patient went to morning group. Were meds taken: Yes Any med S/E: None Mental Status Exam Appearance: Neat and appropriately dressed Eye contact: Poor Behavior: Withdrawn, isolates, psychomotor activity WNL Speech: Soft and inaudible at times, and sometimes pt does not answer Mood: Depressed Affect: Constricted Thought process: Thought blocking with poverty of thought Thought Content: Phobia and possibly delusions or paranoia. Cognition: A&O X4 (to name, place, and when asked why are you here, she stated sarcastically, "Because I'm crazy.") Insight: Poor Judgment: Poor Interventions PRN's used: None Therapeutic interventions: Provided active listening, maintained a safe and therapeutic environment, assessed cognition, encouraged pt. to ear however she refused, maintained Q 15 min. safety checks. Restraints/seclusion/emergency medication: N/A Justification of Continued Inpatient Treatment: Pt. requires interruption of current crisis, medication adjustments, and the scheduling of out-patient appointments before she will be ready to DC home.
[2018-05-06] MEDS: OLANZapine 2.5MG tablet PO SCH (20:13)
[2018-05-06] MEDS: prazosin 1mg capsule PO SCH (20:13)
[2018-05-06 20:25] VITALS: BP 150/82
[2018-05-07] MEDS: LORazepam 1 MG tablet PO SCH ×4 (00:41→21:04)
--- NOTE | 2018-05-07 01:46 | NUR ---
Nursing Note: Chief Complaint: Anxiety and psychosis Legal hold: Voluntary Client on voluntary DTS Report received from nurse with use of SBAR: Donato RN Why are they here: Pt. voluntarily admitted r/t to chronic Bipolar D/O with recent behavioral changes r/t unknown etiology. Diagnosis/presenting symptoms: Pt. withdrawn/irritated, unable to complete MH assessment. She presents as depressed and anxious. Assessment What has happened this shift: Pt was laying in bed at change of shift, 1:1 assessment completed at bedside pt denies s/i, states she is here to "balance out my bipolar." pt reports she has been sleeping "pretty good". Pt states she hasnt been eating, states one reason for this is that she was given turkey on her plate and she eats a vegetarian diet. Pt states she will alert someone if this happens again. Pt states she wasnt eating well prior to coming into [facility]. Pt states the worked on "speaking to our hearts" today in group. Pt states she has not had a bm since the but declines medication for this stating she hasnt been eating so doesnt expect to have a bm. S/I, H/I: Pt denies A/VH: Pt denies Sleep: Patient is sleeping well ADL's: Independent Group attendance: no evening groups Were meds taken: Yes, pt was asleep at 9pm so ativan was given when she woke up later in the shift. Any med S/E: None Mental Status Exam Appearance: adequately groomed and dressed Eye contact: good Behavior: stays in bed during shift Speech: wnl, pt is soft spoken and due to thought blocking is slow to answer questions Mood: Depressed Affect: Constricted Thought process: Thought blocking with poverty of thought Thought Content: hopes of getting better, states her will not be in for a visit tonight Cognition: a/ox4 Insight: Poor Judgment: Poor Interventions PRN's used: None Therapeutic interventions: Provided active listening, maintained a safe and therapeutic environment, encouraged snacks, maintained Q 15 min. safety checks. Restraints/seclusion/emergency medication: N/A Justification of Continued Inpatient Treatment: Pt. requires interruption of current crisis, medication adjustments, and the scheduling of out-patient appointments before she will be ready to DC home.
[2018-05-07] MEDS: levoTHYROXINE 75mcg tablet PO SCH (07:00)
[2018-05-07 08:00] VITALS: BP 115/71
[2018-05-07] MEDS: METHYLFOLATE 15 MG PO SCH (08:15)
[2018-05-07] MEDS: atorvastatin 20mg tablet PO SCH (08:22)
[2018-05-07] MEDS: cloNIDine 0.1 mg tablet PO SCH (08:22)
--- NOTE | 2018-05-07 11:42 | NUR ---
Bead Wire Insulator 1:1 The undersigned clinician met individually with patient using bilateral sound and a resource eye position to reduce the emotional distress level. Patient reported feeling a SUDs level of 5 that was reduced to a 1. Patient reports feeling frustrated and wants to go home. Patient also reports having bilateral sound cd's at home that she uses. Plan= Continue to support patient and collaborate with treatment team. Demi Correa [facility]ITAL[facility]
--- NOTE | 2018-05-07 14:38 | NUR ---
PPD results: PPD skin test administered on 05/05 and read on 05/07 - negative (<1.0 mm)
--- NOTE | 2018-05-07 15:04 | NUR ---
consult: additional nutrition consult re: patient not eating. Met patient at bedside today to discuss appetite. She reports a poor appetite but does not know why and does not want anything changed on her meals. She states she likes cottage cheese, which she is able to get on her meals. Provided written heart healthy education handout in view of LDL 224 and TG of 210. Refusing meals, 0-25% PO intake. Patient encouraged to eat. Will continue to follow. Rec: 1. continue vegetarian diet 2. monitor for ONS needs 3. wt per rx Addendum: 05/07/18 at [address] Amended: Links added.
--- NOTE | 2018-05-07 17:38 | NUR ---
Nursing Note: Chief Complaint: Anxiety and psychosis Legal hold: Voluntary Client on voluntary DTS Report received from nurse with use of SBAR: MARCELL Cordova Why are they here: Pt. voluntarily admitted r/t to chronic Bipolar D/O with recent behavioral changes r/t unknown etiology. Diagnosis/presenting symptoms: F45.851 SI; F31.4 Bipolar Depression/Delirium; Pt. withdrawn/irritated, unable to complete MH assessment. She presents as depressed and anxious. Assessment What has happened this shift: Received patient lying awake in bed. Patient continues to stare at the ceiling with intrusive thoughts of wanting this current season of her life to be over. Patient denies that the stars are suicidal in nature, and just states that shes tired. Patient does appear to not block at times and is slow to answer questions. Patient up out of bed for meals, but continues to only take a few bites of her meal. Patient did meet with chemistry account manager today to try and get foods that are more agreeable to her. Patient continues to endorse depression. Patient denies auditory or visual hallucinations. Patient refused both groups today. S/I, H/I: Pt. withdrawn/and unable to answer at times. A/VH: Pt. withdrawn Sleep: Patient lays down during the day but RN does not believe patient actually naps. ADL's: Independent Group attendance: Patient went to morning group. Were meds taken: Yes Any med S/E: None Mental Status Exam Appearance: Neat and appropriately dressed Eye contact: Poor Behavior: Withdrawn, isolates, psychomotor activity WNL Speech: Soft and inaudible at times, and sometimes pt does not answer Mood: Depressed Affect: Constricted Thought process: Thought blocking with poverty of thought Thought Content: Phobia and possibly delusions or paranoia. Cognition: A&O X4 (to name, place, and when asked why are you here, she stated sarcastically, "Because I'm crazy.") Insight: Poor Judgment: Poor Interventions PRN's used: None Therapeutic interventions: Provided active listening, maintained a safe and therapeutic environment, assessed cognition, encouraged pt. to ear however she refused, maintained Q 15 min. safety checks. Restraints/seclusion/emergency medication: N/A Justification of Continued Inpatient Treatment: Pt. requires interruption of current crisis, medication adjustments, and the scheduling of out-patient appointments before she will be ready to DC home.
[2018-05-07 19:00] VITALS: BP 119/74
[2018-05-07] MEDS: prazosin 1mg capsule PO SCH (21:04)
[2018-05-07] MEDS: OLANZapine 2.5MG tablet PO SCH (21:04)
--- NOTE | 2018-05-08 01:59 | NUR ---
Nursing Progress Note Chief Complaint: Pt BIB due to behavioral changes, pt is fearful and having passive s/i Legal hold: Voluntary Client on voluntary for DTS. Report received from Donato FAITH Why are they here: Evaluation and stabilization Diagnosis/presenting symptoms: SI. Bipolar depression Assessment What has happened this shift: Pt was laying in bed at change of shift, 1:1 assessment completed at bedside. Pt denies s/i. Continues to have depression states "I dont know if anything is going to help. I guess if the meds are working I can't really tell." Pt reports feeling "the same as when I came in." Pt spent evening visiting w/her . Reports sleep has been good, continues to report a poor appetite and states today tuna fish was on her tray. Pt continues to have thought blocking and delayed responses to questions S/I, H/I: pt denies A/VH: Denies. Sleep: Pt reports she is sleeping well ADL's: Independent. Group attendance: No groups in the evening Were meds taken: Yes Any med S/E: None reported or observed Mental Status Exam Appearance: adequately groomed, Eye contact: good Behavior: Isolates to her room unless visiting w/ in group room Speech: Soft, quiet Mood: Fearful, anxious, depressed Affect: constricted Thought process: linear, thought blocking Thought Content: pt talks about group during the day but states she only attended one group. Cognition: Impaired. Insight: Impaired. Judgment: Impaired. Interventions PRN's used: none Therapeutic interventions: 1:1 assessment, q15 min checks for safety. . Restraints/seclusion/emergency medication: None. Justification of Continued Inpatient Treatment: Pt continues to report depression, and would benefit from continued medication stabilization. Patient would be high risk of rehospitalization
[2018-05-08] MEDS: LORazepam 1 MG tablet PO SCH ×2 (07:34→13:23)
[2018-05-08] MEDS: levoTHYROXINE 75mcg tablet PO SCH (07:34)
[2018-05-08] MEDS: atorvastatin 20mg tablet PO SCH (07:34)
[2018-05-08] MEDS: cloNIDine 0.1 mg tablet PO SCH (07:34)
[2018-05-08] MEDS: METHYLFOLATE 15 MG PO SCH (07:34)
[2018-05-08 08:00] VITALS: BP 119/83
--- NOTE | 2018-05-08 16:14 | NUR ---
Nursing Note: Chief Complaint: Anxiety and psychosis Legal hold: Voluntary Client on voluntary DTS Report received from nurse with use of SBAR: MARCELL Cordova Why are they here: Pt. voluntarily admitted r/t to chronic Bipolar D/O with recent behavioral changes r/t unknown etiology. Diagnosis/presenting symptoms: F45.851 SI; F31.4 Bipolar Depression/Delirium; Pt. withdrawn/irritated, unable to complete MH assessment. She presents as depressed and anxious. Assessment Patient up at a bed for meals, and she attended one of the two groups. Otherwise patient lying in her bed awake. Patient states shes thinking about getting better. Patient did state that she was scared that she wouldnt get any better. She says this thought his was causing her to be depressed. Patient denied suicidal ideation at this time and denied auditory or visual hallucinations. Patient continues to be so slow to respond when asked questions. Patient appetite also continues to be extremely low. She had four bites of breakfast in around four bites of lunch. Patient refused to take a shower, but said she may be willing to do it tomorrow. S/I, H/I: Pt. withdrawn/and unable to answer at times. A/VH: Pt. withdrawn Sleep: Patient lays down during the day but RN does not believe patient actually naps. ADL's: Independent Group attendance: Patient went to morning group. Were meds taken: Yes Any med S/E: None Mental Status Exam Appearance: Neat and appropriately dressed Eye contact: Poor Behavior: Withdrawn, isolates, psychomotor activity WNL Speech: Soft and inaudible at times, and sometimes pt does not answer Mood: Depressed Affect: Constricted Thought process: Thought blocking with poverty of thought Thought Content: Phobia and possibly delusions or paranoia. Cognition: A&O X4 (to name, place, and when asked why are you here, she stated sarcastically, "Because I'm crazy.") Insight: Poor Judgment: Poor Interventions PRN's used: None Therapeutic interventions: Provided active listening, maintained a safe and therapeutic environment, assessed cognition, encouraged pt. to ear however she refused, maintained Q 15 min. safety checks. Restraints/seclusion/emergency medication: N/A Justification of Continued Inpatient Treatment: Pt. requires interruption of current crisis, medication adjustments, and the scheduling of out-patient appointments before she will be ready to DC home.
[2018-05-08 19:00] VITALS: BP 105/60
[2018-05-08] MEDS: OLANZapine 2.5MG tablet PO SCH (20:33)
[2018-05-08] MEDS: prazosin 1mg capsule PO SCH (20:41)
[2018-05-08] MEDS ORDERED: LORazepam 1 MG tablet PO ONE (21:00)
--- NOTE | 2018-05-08 22:57 | NUR ---
Nursing Note: Chief Complaint: Anxiety and psychosis Legal hold: Voluntary Client on voluntary DTS Report received from nurse with use of SBAR: MARCELL Cordova Why are they here: Pt. voluntarily admitted r/t to chronic Bipolar D/O with recent behavioral changes r/t unknown etiology. Diagnosis/presenting symptoms: F45.851 SI; F31.4 Bipolar Depression/Delirium; Pt. withdrawn/irritated, unable to complete MH assessment. She presents as depressed and anxious. Assessment Received patient lying in her bed, awake. Patients came to visit and patient got up and sat in the day room with him. Champlain through visiting time she had to use the toilet and had quite an episode of diarrhea. Staff had to help her get cleaned up and then she finished the visit with her . Patient continues to have flat blunted affect and states she feels depressed because shes worried shes never going to get any better. patient came to the evening activity in the day room but left soon after it began and went to bed. S/I, H/I: Pt. withdrawn/and unable to answer at times. A/VH: Pt. withdrawn Sleep: Patient lays down during the day but RN does not believe patient actually naps. ADL's: Independent Group attendance: Patient went to morning group. Were meds taken: Yes Any med S/E: None Mental Status Exam Appearance: Neat and appropriately dressed Eye contact: Poor Behavior: Withdrawn, isolates, psychomotor activity WNL Speech: Soft and inaudible at times, and sometimes pt does not answer Mood: Depressed Affect: Constricted Thought process: Thought blocking with poverty of thought Thought Content: Phobia and possibly delusions or paranoia. Cognition: A&O X4 (to name, place, and when asked why are you here, she stated sarcastically, "Because I'm crazy.") Insight: Poor Judgment: Poor Interventions PRN's used: None Therapeutic interventions: Provided active listening, maintained a safe and therapeutic environment, assessed cognition, encouraged pt. to ear however she refused, maintained Q 15 min. safety checks. Restraints/seclusion/emergency medication: N/A Justification of Continued Inpatient Treatment: Pt. requires interruption of current crisis, medication adjustments, and the scheduling of out-patient appointments before she will be ready to DC home.
[2018-05-09] MEDS: buPROPion SR 100mg tab PO SCH (07:43)
[2018-05-09] MEDS: levoTHYROXINE 75mcg tablet PO SCH (07:43)
[2018-05-09] MEDS: atorvastatin 20mg tablet PO SCH (07:43)
[2018-05-09] MEDS: METHYLFOLATE 15 MG PO SCH (07:43)
[2018-05-09 08:00] VITALS: BP 106/70
[2018-05-09] MEDS ORDERED: LORazepam 1 MG tablet PO SCH (08:00)
[2018-05-09] MEDS: LORazepam 0.5 MG tablet PO SCH ×3 (12:55→20:25)
--- NOTE | 2018-05-09 17:51 | NUR ---
Nursing Progress Note: Chief Complaint: Mental status and behavioral changes Legal hold: voluntary Client on voluntary status for DTS. Report received from MARCELL Sewell with use of SBAR. Why are they here: Psychiatric stabilization and medication adjustments. Diagnosis/presenting symptoms: Bipolar Disorder with recent behavioral changes Psychomotor retardation, mental status and behavior changes Assessment What has happened this shift: Pt was sleeping at change of shift. Pt was up to the group room for meals. She laid in bed during the morning with her eyes closed, but stated she was not sleeping. She said, Thinking about wanting to go home. During assessment, pt had minimal answers to questions and responded best to closed-ended questions. She said she was depressed She was noted to have oral-facial movement. She shared that she thought the Ativan was making her tired. She isolated to her room throughout the day. S/I, H/I: denies A/VH: denies Sleep: napped. Said she slept well last night. ADL's: independent Group attendance: no Were meds taken: yes Any med S/E: no Mental Status Exam Appearance: appropriate Eye contact: indirect Behavior: Isolates, Fatigued and stayed in bed much of the day Speech: minimal speech Mood: depressed Affect: constricted Thought process: blocking Thought Content: wants to go home Cognition: oriented to self Insight: poor Judgment: poor Interventions PRN's used: none Therapeutic interventions: 1:1 therapeutic assessment, active listening, Q15 min safety checks, encouraged group participation Restraints/seclusion/emergency medication: No Justification of Continued Inpatient Treatment: Pt continues to experience depression and isolates. Pt needs psychiatric stabilization, medication adjustment, ongoing support, and monitoring.
--- NOTE | 2018-05-09 19:25 | NUR ---
Nursing Note: Pt. laying in bed. states she had a good day. No complaints at this time.
[2018-05-09] MEDS: prazosin 1mg capsule PO SCH (20:19)
[2018-05-09] MEDS: OLANZapine 2.5MG tablet PO SCH (20:21)
[2018-05-09 20:59] VITALS: BP 103/66
[2018-05-10] MEDS: METHYLFOLATE 15 MG PO SCH (07:34)
[2018-05-10] MEDS: buPROPion SR 100mg tab PO SCH (07:34)
[2018-05-10] MEDS: LORazepam 0.5 MG tablet PO SCH ×3 (07:34→20:16)
[2018-05-10] MEDS: levoTHYROXINE 75mcg tablet PO SCH (07:34)
[2018-05-10] MEDS: atorvastatin 20mg tablet PO SCH (07:34)
[2018-05-10 07:39] VITALS: BP 114/72
--- NOTE | 2018-05-10 16:07 | NUR ---
Nursing Note: Chief Complaint: Anxiety and psychosis Legal hold: Voluntary Client on voluntary DTS Report received from nurse with use of SBAR: serenity RN Why are they here: Pt. voluntarily admitted r/t to chronic Bipolar D/O with recent behavioral changes r/t unknown etiology. Diagnosis/presenting symptoms: F45.851 SI; F31.4 Bipolar Depression/Delirium; Pt. withdrawn/irritated, unable to complete MH assessment. She presents as depressed and anxious. Assessment Patient continues to spend all her free time lying on her bed. Patient did get up for meals but probably return to her bed after meals and did not attend group. Patient did appear to have less symptoms in that she responded appropriately to questions when interviewed, she lacked any slowness or thought blocking when asked questions and responded right away. Patient also smiled a bit and appeared slightly less flat affect. Patient said shes starting to feel less depressed and denied suicidal thoughts at this time. S/I, H/I: Pt. withdrawn/and unable to answer at times. A/VH: Pt. withdrawn Sleep: Patient lays down during the day but RN does not believe patient actually naps. ADL's: Independent Group attendance: Patient went to morning group. Were meds taken: Yes Any med S/E: None Mental Status Exam Appearance: Neat and appropriately dressed Eye contact: Poor Behavior: Withdrawn, isolates, psychomotor activity WNL Speech: Soft and inaudible at times, and sometimes pt does not answer Mood: Depressed Affect: Constricted Thought process: Thought blocking with poverty of thought Thought Content: Phobia and possibly delusions or paranoia. Cognition: A&O X4 (to name, place, and when asked why are you here, she stated sarcastically, "Because I'm crazy.") Insight: Poor Judgment: Poor Interventions PRN's used: None Therapeutic interventions: Provided active listening, maintained a safe and therapeutic environment, assessed cognition, encouraged pt. to ear however she refused, maintained Q 15 min. safety checks. Restraints/seclusion/emergency medication: N/A Justification of Continued Inpatient Treatment: Pt. requires interruption of current crisis, medication adjustments, and the scheduling of out-patient appointments before she will be ready to DC home.
[2018-05-10 19:56] VITALS: BP 100/68
[2018-05-10] MEDS: OLANZapine 2.5MG tablet PO SCH (20:20)
[2018-05-10] MEDS: prazosin 1mg capsule PO SCH (20:21)
--- NOTE | 2018-05-11 02:16 | NUR ---
[facility] Nursing Progress Note: Chief Complaint: Anxiety and psychosis Legal hold: Voluntary Client on voluntary DTS Report received from nurse with use of SBAR: Alexa RN Why are they here: Pt. voluntarily admitted r/t to chronic Bipolar D/O with recent behavioral changes r/t unknown etiology. Diagnosis/presenting symptoms: F45.851 SI; F31.4 Bipolar Depression/Delirium; Pt. withdrawn/irritated, unable to complete MH assessment. She presents as depressed and anxious. Assessment Received patient in main dining room. Patients came to visit and patient sat in the day room with him. Pt walked pt back to her room, and pt lied down and stared at the ceiling. Patient continues to have flat blunted affect, severe poverty of speech, and an apparent inability to smile. Patient did not leave her bed after her left except to use the restroom. S/I, H/I: Pt. Withdrawn; unable to answer at times. Denies SI/HI A/VH: Denies Sleep: Pt appears to sleep at night ADL's: Independent Group attendance: No evening groups Were meds taken: Yes Any med S/E: None Mental Status Exam Appearance: Neat and appropriately dressed Eye contact: Poor Behavior: Withdrawn, isolates, psychomotor activity WNL Speech: Soft and inaudible at times, and sometimes pt does not answer Mood: Depressed Affect: Constricted Thought process: Thought blocking with poverty of thought Thought Content: Phobia and possibly delusions or paranoia. Cognition: A&O X4 Insight: JESSICA Judgment: JESSICA Interventions PRN's used: None Therapeutic interventions: Provided active listening, maintained a safe and therapeutic environment, assessed cognition, encouraged pt. to ear however she refused, maintained Q 15 min. safety checks. Restraints/seclusion/emergency medication: N/A Justification of Continued Inpatient Treatment: Pt. requires interruption of current crisis, medication adjustments, and the scheduling of out-patient appointments before she will be ready to DC home.
[2018-05-11] MEDS: levoTHYROXINE 75mcg tablet PO SCH (07:45)
[2018-05-11 08:00] VITALS: BP 137/85
[2018-05-11] MEDS: atorvastatin 20mg tablet PO SCH (08:23)
[2018-05-11] MEDS: LORazepam 0.5 MG tablet PO SCH ×3 (08:24→20:56)
[2018-05-11] MEDS: buPROPion SR 150mg tablet PO SCH (08:24)
[2018-05-11] MEDS: METHYLFOLATE 15 MG PO SCH (08:24)
--- NOTE | 2018-05-11 17:14 | NUR ---
Nursing Note: Chief Complaint: Confusion, ALOC and "feeling scared." Legal hold: Voluntary Client on voluntary DTS Report received from MARCELL Wren with use of SBAR Why are they here: Pt. voluntarily admitted r/t to chronic Bipolar D/O with recent behavioral changes r/t unknown recent medication changes at [facility]. Diagnosis/presenting symptoms: History of Bipolar Assessment Pt assessment provided at bedside. Pt presents w/impoverished speech wthought blocking. She gets up for meals and attends groups. She does not engage in conversation w/peers. She admits to feeling less depressed. S/I, H/I: Denies A/VH: Denies Sleep: Lays flat on her back stares at the ceiling but does not sleep. ADL's: Independent Group attendance: Attends groups Were meds taken: Y Any med S/E: None noted or reported Mental Status Exam Appearance: WNL's Eye contact: Poor Behavior: Isolates Speech: Poverty of speech Mood: Depressed Affect: Flat Thought process: Thought blocking Thought Content: appears to be RIS Cognition: A/O x3 Insight: Poor Judgment: Poor Interventions PRN's used: N/A Therapeutic interventions: Established rapport, provided active listening, maintained safe and therapeutic envoronment, provided medication education, obtained and maintained Q 15 minute safety checks. Restraints/seclusion/emergency medication: N/A Justification of Continued Inpatient Treatment: Medication stabilization
[2018-05-11 19:45] VITALS: BP 117/73
[2018-05-11] MEDS: OLANZapine 2.5MG tablet PO SCH (20:56)
[2018-05-11] MEDS: prazosin 1mg capsule PO SCH (20:56)
--- NOTE | 2018-05-12 04:01 | NUR ---
Nursing Note: Chief Complaint: Confusion, ALOC and "feeling scared." Legal hold: Voluntary Client on voluntary DTS Report received from MARCELL Rhodes with use of SBAR Why are they here: Pt. voluntarily admitted r/t to chronic Bipolar D/O with recent behavioral changes r/t unknown recent medication changes at [facility]. Diagnosis/presenting symptoms: History of Bipolar Assessment Pt lying in bed in dark room eyes wide open staring at the ceiling at start of shift. One word answers to questions. Says she feels "fine." Her affect appears extremely anxious and scared. Her arrived in the middle of the assessment. Pt became animated got immediately out of bed and went into group room with . is attentive, pt did not completely loose her frightened anxious affect but did relax and talk with . After left pt immediately went back to bed starig at ceiling. declined to come to group room for group. Took all HS meds. S/I, H/I: Denies A/VH: Denies Sleep: One word answers ADL's: Independent Group attendance: Attends groups Were meds taken: Y Any med S/E: None noted or reported Mental Status Exam Appearance: WNL's Eye contact: Poor Behavior: Isolates Speech: Poverty of speech Mood: Depressed Affect: Flat Thought process: Thought blocking Thought Content: appears to be RIS Cognition: A/O x3 Insight: Poor Judgment: Poor Interventions PRN's used: N/A Therapeutic interventions: Established rapport, provided active listening, maintained safe and therapeutic envoronment, provided medication education, obtained and maintained Q 15 minute safety checks. Restraints/seclusion/emergency medication: N/A Justification of Continued Inpatient Treatment: Medication stabilization
[2018-05-12 08:00] VITALS: BP 108/67
[2018-05-12] MEDS: buPROPion SR 150mg tablet PO SCH (08:02)
[2018-05-12] MEDS: levoTHYROXINE 75mcg tablet PO SCH (08:02)
[2018-05-12] MEDS: atorvastatin 20mg tablet PO SCH (08:03)
[2018-05-12] MEDS: METHYLFOLATE 15 MG PO SCH (08:47)
[2018-05-12] MEDS: LORazepam 0.5 MG tablet PO SCH ×3 (08:47→20:39)
[2018-05-12] MEDS: buPROPion SR 100mg tab PO SCH (12:59)
--- NOTE | 2018-05-12 16:20 | NUR ---
Nursing Note: Chief Complaint: Confusion, ALOC Legal hold: Voluntary Client on voluntary DTS Report received from MARCELL Wilson with use of SBAR Why are they here: Pt. voluntarily admitted r/t to chronic Bipolar D/O with recent behavioral changes r/t unknown recent medication changes at [facility]. Diagnosis/presenting symptoms: History of Bipolar Assessment Pt assessment provided at bedside. Pt engaged in conversation during her assessment. She shared, "I'm afraid you guys are going to keep me here forever and never let me go home." She eats meals in the dining room does not engage w/peers. She attends groups does not participate conversations started in groups and is reluctant to answer questions. S/I, H/I: Denies A/VH: Denies Sleep: Lays flat on her back stares at the ceiling ADL's: Independent Group attendance: Attends groups Were Meds taken: Y Any med S/E: None noted or reported Mental Status Exam Appearance: WNL's Eye contact: Poor Behavior: Isolates Speech: Poverty of speech Mood: Depressed Affect: Flat Thought process: Thought blocking Thought Content: appears to be RIS Cognition: A/O x3 Insight: Poor Judgment: Poor Interventions PRN's used: N/A Therapeutic interventions: Established rapport, provided active listening, maintained safe and therapeutic environment, provided medication education, obtained and maintained Q 15 minute safety checks. Restraints/seclusion/emergency medication: N/A Justification of Continued Inpatient Treatment: Medication stabilization
[2018-05-12 20:00] VITALS: BP 120/66
[2018-05-12] MEDS: prazosin 1mg capsule PO SCH (20:39)
[2018-05-12] MEDS: OLANZapine 2.5MG tablet PO SCH (20:39)
--- NOTE | 2018-05-12 23:02 | NUR ---
Nursing Note: Chief Complaint: Confusion, ALOC Legal hold: Voluntary Client on voluntary status Report received from MARCELL Rhodes with use of SBAR Why are they here: Pt. voluntarily admitted r/t to chronic Bipolar D/O with recent behavioral changes r/t unknown recent medication changes at [facility]. Diagnosis/presenting symptoms: History of Bipolar Assessment What happened this shift: Pt was laying in bed staring at the ceiling at [facility], 1:1 assessment completed at bedside. Pt states her day "didnt go to well, I didnt participate." Encouraged pt to continue to attend groups and listen to discussion until she feels she is ready to participate. Pt states "Im encouraged the doctor is going to raise the Wellbutrin, because I hope that will stimulate more energy." Pts affect has brightened somewhat but still constricted. Pt reports sleeping good, continues to report poor appetite and can't think of anything that would help to improve this. ordered chem panel for the morning due to weight loss pt has had since she arrived here. S/I, H/I: Denies A/VH: Denies Sleep: pt states she sleeps well at night ADL's: Independent Group attendance: Attends groups states she doesnt feel ready to participate Were Meds taken: Y Any med S/E: None reported or observed Mental Status Exam Appearance: adequately groomed and dressed Eye contact: Poor Behavior: Isolates Speech: Paucity of speech Mood: Depressed Affect: constricted Thought process: latency of response, linear Thought Content: appears to be RIS, but denies avh when asked Cognition: A/O x3 Insight: Poor Judgment: Poor Interventions PRN's used: N/A Therapeutic interventions: Established rapport, provided active listening, maintained safe and therapeutic environment, observed Q 15 minutes for safety Restraints/seclusion/emergency medication: N/A Justification of Continued Inpatient Treatment: Medication stabilization
[2018-05-13] MEDS: LORazepam 0.5 MG tablet PO SCH ×3 (07:27→20:32)
[2018-05-13] MEDS: atorvastatin 20mg tablet PO SCH (07:27)
[2018-05-13] MEDS: METHYLFOLATE 15 MG PO SCH (07:28)
[2018-05-13] MEDS: levoTHYROXINE 75mcg tablet PO SCH (07:28)
[2018-05-13] MEDS: buPROPion SR 150mg tablet PO SCH (07:28)
[2018-05-13 08:00] VITALS: BP 114/72
[2018-05-13 08:05] LABS: ALANINE AMINOTRANSFERASE 29 U/L (12-78); ALBUMIN 3.4 G/DL (3.4-5.0); ALBUMIN/GLOBULIN RATIO 0.9 (1.1-1.5); ALKALINE PHOSPHATASE 77 IU/L (46-116); ANION GAP 11 (8-16); ASPARTATE AMINO TRANSFERASE 30 U/L (10-37); BILIRUBIN,TOTAL 0.4 MG/DL (0.1-1.0); BLOOD UREA NITROGEN 10 MG/DL (7-18); BUN/CREATININE RATIO 13.7 (6.6-38.0); CHLORIDE 101 MMOL/L (99-107); CREATININE 0.73 MG/DL (0.40-0.90); GLUCOSE 89 MG/DL (70-104); SODIUM 137 MMOL/L (135-145); TOTAL CARBON DIOXIDE 24.7 MMOL/L (24-32); TOTAL PROTEIN 7.2 G/DL (6.4-8.2); eGFR 80 ML/MIN
[2018-05-13] MEDS: buPROPion SR 100mg tab PO SCH (12:44)
--- NOTE | 2018-05-13 13:34 | NUR ---
Nursing Note: Chief Complaint: Confusion, ALOC Legal hold: Voluntary Client on voluntary status Report received from MARCELL Cordova with use of SBAR Why are they here: Pt. voluntarily admitted r/t to chronic Bipolar with recent behavioral changes r/t unknown recent medication changes at [facility] Diagnosis/presenting symptoms: History of Bipolar Assessment What happened this shift: Patient was sleeping in bed at change of shift observation breathing evenly and unlabored. Patient was alert and oriented x4 upon waking and requested to have all of her medications before breakfast. Patient is calm and cooperative. Affect is bland and anxious. During nurse 1:1, Patient made good eye contact and held an adequate but short conversation. She has slight poverty of speech but is clear when speaking. Denies S/I, H/I and all hallucinations at this time but feels "about the same" as when she arrived to the unit. She explained the reason for her admission was that her at home psych medications stopped working for her. Pt often stares quietly at the ceiling with eyes wide open and anxious appearance. She denies anxiety when asked. Patient has routine 0.5mg Ativan ordered TID for anxiety. She is cooperative and takes all medications as ordered. She reports that she is "waiting for the medication to start working." She anticipates that she will improve when this happens and is aware that her Wellbutrin dose has be increased. Pt refused to attend groups today and isolated in room. No adverse effects of medications observed at this time. Will continue to monitor. Q15 observations continued. S/I, H/I: Denies A/VH: Denies Sleep: adequate. Pt reports sleeping well ADL's: Independent Group attendance: refused groups today Were Meds taken: Y Any med S/E: None reported or observed Mental Status Exam Appearance: adequately groomed and dressed but refused shower. Hair appears to be oily and unwashed. Personal hygiene is minimal Eye contact: adequate Behavior: Isolates in room Speech: Some poverty of speech Mood: "alright." Appears to be anxious and depressed. Affect: constricted, blunted Thought process: linear. Response to questions is intermittently slowed Thought Content: denies auditory and visual hallucinations when asked. Pt often stares quietly at the ceiling with eyes wide open and anxious appearance. Cognition: A/O x4 Insight: Poor Judgment: Poor Interventions PRN's used: N/A Therapeutic interventions: Nurse 1:1, active listening, maintained safe and therapeutic environment, observed Q 15 minutes for safety Restraints/seclusion/emergency medication: N/A Justification of Continued Inpatient Treatment: Medication stabilization
[2018-05-13] MEDS ORDERED: LORazepam 0.5 MG tablet PO PRN (16:00)
[2018-05-13 20:00] VITALS: BP 133/79
[2018-05-13] MEDS: OLANZapine 2.5MG tablet PO SCH (20:32)
[2018-05-13] MEDS: prazosin 1mg capsule PO SCH (20:32)
--- NOTE | 2018-05-14 01:34 | NUR ---
Nursing Note: Chief Complaint: Confusion, ALOC Legal hold: Voluntary Client on voluntary status Report received from MARCELL Vasques with use of SBAR Why are they here: Pt. voluntarily admitted r/t to chronic Bipolar with recent behavioral changes r/t unknown recent medication changes at [facility] Diagnosis/presenting symptoms: History of Bipolar Assessment What happened this shift: Pt was sitting on the side of her bed at change of shift. 1:1 assessment completed at bedside. Pt denies s/i, denies a/vh, appears anxious. Pt reports sleep "has been good but its not great". Pt explained shes been having "strange dreams" at night, "not nightmares, just really strange." Pt reports appetite is still poor, but she reports that she ate "some." Pt states meds are working and she is starting to "feel more responsive, I feel like getting ready to go home." S/I, H/I: Denies A/VH: Denies Sleep: pt had interrupted sleep last night due to 'strange dreams' ADL's: Independent Group attendance: reports going to group and "just listened mostly" Were Meds taken: Y Any med S/E: None reported or observed Mental Status Exam Appearance: adequately groomed and dressed. hygeine is fair Eye contact: fair Behavior: Isolates in room Speech: poverty of speech is improving Mood: Appears anxious and depressed. Affect: constricted Thought process: linear. thought blocking Thought Content: appears to be responding to IS Cognition: A/O x4 Insight: Poor Judgment: Poor Interventions PRN's used: N/A Therapeutic interventions: Nurse 1:1, active listening, maintained safe and therapeutic environment, observed Q 15 minutes for safety Restraints/seclusion/emergency medication: N/A Justification of Continued Inpatient Treatment: Medication stabilization
[2018-05-14 07:51] VITALS: BP 142/50
[2018-05-14] MEDS: atorvastatin 20mg tablet PO SCH (08:04)
[2018-05-14] MEDS: LORazepam 0.5 MG tablet PO SCH ×3 (08:04→20:31)
[2018-05-14] MEDS: METHYLFOLATE 15 MG PO SCH (08:05)
[2018-05-14] MEDS: levoTHYROXINE 75mcg tablet PO SCH (08:05)
[2018-05-14] MEDS: buPROPion SR 150mg tablet PO SCH (08:05)
--- NOTE | 2018-05-14 11:43 | NUR ---
reassessment: Pt continues to refuse meals and high protein shake TIDWM started today per RN 0-25% PO/refusing past 19 days since admit. low PO r/t DX and psychosis. LBM 05/12 and electrolytes/GLU normal. Would benefit from appetite stimulant per MD approval given low PO; IZABELLA d/w RN. Per RN tolerated liquids better than solids. Low PO hx in addition to 9kg/10% UBW wt loss since admit per standing scale wts qualifies pt for severe malnutrition at this time; MD notified. Will continue to monitor. Rec: 1. continue vegetarian diet 2. high protein shake TIDWM 3. appetite stimulant per MD approval given PO hx 4. monitor for additional ONS needs 5. weekly wts Addendum: 05/14/18 at [address] Amended: Links added.
[2018-05-14] MEDS: buPROPion SR 100mg tab PO SCH (12:11)
[2018-05-14] MEDS: Protein Shake (high protein) 240ml (8oz) cup PO SCH ×2 (13:00→17:47)
--- NOTE | 2018-05-14 14:51 | NUR ---
Nursing Progress Note: Chief Complaint: Anxiety and psychosis Legal hold: N/A Client is voluntary Report received from nurse with use of SBAR: MARCELL Israel Why are they here: Pt. voluntarily admitted r/t to chronic Bipolar D/O with recent behavioral changes r/t unknown etiology. Diagnosis/presenting symptoms: F45.851 SI; F31.4 Bipolar Depression/Delirium; Pt presents as depressed, anxious, fearful, isolative to self Assessment: What happened this shift: Pt alert, out of room to community room for meals but does not eat her food. Order placed for Protein shakes TID, pt refused breakfast and lunch, states, "I just don't have an appetite." Pt was agreeable to protein shakes and drank 100% of protein shake brought up to her per this RN's request after lunch. Pt appears anxious, has a delayed response to questions, seems to have some difficulty word finding and getting the words out, though is able to communicate needs and verbalizations have increased since admit. Pt continues to isolate to self, returns to room after meals/group, does not socialize with peers. S/I, H/I: Pt denies A/VH: Pt denies Sleep: Slept per noc shift report ADL's: Independent Group attendance: Pt attended the morning group Were meds taken: Yes Any med S/E: None Mental Status Exam Appearance: appropriate dress, poor personal hygiene Eye contact: Fair Behavior: Withdrawn, isolates to self, social anxiety Speech: Poverty of speech, soft, low volume, delayed response Mood: Anxious Affect: Congruent; anxious, appears internally preoccupied Thought process: Thought blocking, poverty of thought Thought Content: Ruminates on anxiety/fear. Cognition: A&O X4 Insight: pt unable to verbalize understanding of her symptoms/illness Judgment: poor Interventions: PRN's used: None Therapeutic interventions: 1:1 assessment, attempted small talk/nonthreatening light conversation to put pt at ease, encouragement of food and drink; pt agrees to drink protein shakes, maintained a safe and therapeutic environment, Q 15 min. safety checks. Restraints/seclusion/emergency medication: N/A Justification of Continued Inpatient Treatment: Pt. requires interruption of current crisis, medication adjustments, and the scheduling of out-patient appointments before she will be ready to D/C home.
[2018-05-14 19:00] VITALS: BP 113/66
[2018-05-14] MEDS: OLANZapine 2.5MG tablet PO SCH ×2 (20:30→21:57)
[2018-05-14] MEDS: prazosin 1mg capsule PO SCH (20:31)
--- NOTE | 2018-05-14 22:45 | NUR ---
Nursing Progress Note: Chief Complaint: Anxiety and psychosis Legal hold: N/A Client is voluntary Report received from nurse with use of SBAR: MARCELL Dozier Why are they here: Pt. voluntarily admitted r/t to chronic Bipolar D/O with recent behavioral changes r/t unknown etiology. Diagnosis/presenting symptoms: F45.851 SI; F31.4 Bipolar Depression/Delirium; Pt presents as depressed, anxious, fearful, isolative to self Assessment What happened this shift: Pt was in her room laying down at change of shift. 1:1 assessment completed at bedside. Pt spent evening visiting w/her . She reports she attended groups and listened but still isnt comfortable to participate. She reports her appetite is still not good, but she had 2 protein shakes today and thinks that helps. Pt denies s/i, denies anxiety. Pt does seem less anxious tonight that past evenings working w/her. She states she feels she has "better energy" and is doing better. Pt states she didnt sleep well last night, She took 2nd dose of zyprexa tonight at hs. S/I, H/I: Pt denies A/VH: Pt denies Sleep: Pt reports last night sleep wasnt good. She had trouble falling asleep tonight and took second zyprexa dose at [facility]. ADL's: Independent Group attendance: Pt reports attending both groups today, no evening groups offered. Were meds taken: Yes Any med S/E: None reported or observed Mental Status Exam Appearance: appropriate dress, poor personal hygiene Eye contact: good Behavior: Withdrawn, isolates, but visited w/ in group room tonight and is beginning to communicate with her roommate. Speech: Poverty of speech continues to improve, soft, low volume, delayed response Mood: smiling more, less anxious Affect: Constricted Thought process: Thought blocking, poverty of thought Thought Content: talking about going home Cognition: A&O X4 Insight: poor Judgment: poor Interventions: PRN's used: None Therapeutic interventions: 1:1 assessment, maintained a safe and therapeutic environment, Q 15 min. safety checks. Restraints/seclusion/emergency medication: N/A Justification of Continued Inpatient Treatment: Pt. requires interruption of current crisis, medication adjustments, and the scheduling of out-patient appointments before she will be ready to D/C home.
[2018-05-15 07:44] VITALS: BP 110/68
[2018-05-15] MEDS: atorvastatin 20mg tablet PO SCH (08:10)
[2018-05-15] MEDS: levoTHYROXINE 75mcg tablet PO SCH (08:10)
[2018-05-15] MEDS: buPROPion SR 150mg tablet PO SCH ×2 (08:10→13:11)
[2018-05-15] MEDS: LORazepam 0.5 MG tablet PO SCH ×3 (08:10→21:23)
[2018-05-15] MEDS: METHYLFOLATE 15 MG PO SCH (08:11)
[2018-05-15] MEDS: Protein Shake (high protein) 240ml (8oz) cup PO SCH ×3 (08:14→17:44)
--- NOTE | 2018-05-15 15:03 | NUR ---
Nursing Progress Note: Chief Complaint: Anxiety and psychosis Legal hold: N/A Client is voluntary Report received from nurse with use of SBAR: MARCELL Cordova Why are they here: Pt. voluntarily admitted r/t to chronic Bipolar D/O with recent behavioral changes r/t unknown etiology. Diagnosis/presenting symptoms: F45.851 SI; F31.4 Bipolar Depression/Delirium; Pt presents as depressed, anxious, fearful, isolative to self Assessment: What happened this shift: Pt more responsive and interactive to day with staff, able to answer mental health assessment questions appropriately, pt stated that she was "good" today, rated her anxiety at a 2/10, denied depression. Pt continues to refuse meals, however did drink 100 % of her protein shakes at breakfast and lunch. Pt showered, changed clothes, and attended part of afternoon group, she does continue to return to room after meals and groups and spend the majority of her time isolative to self in bed. S/I, H/I: Pt denies A/VH: Pt denies Sleep: Slept per noc shift report ADL's: Independent Group attendance: Pt attended the part of the afternoon group. Were meds taken: Yes Any med S/E: None Mental Status Exam: Appearance: Clean and appropriate today, wearing a [employer] T-shirt Eye contact: Fair to good Behavior: Withdrawn, isolates to self, social anxiety Speech: Poverty of speech, soft, low volume, delayed response, tense jaw; does not open mouth much to enunciate words at times Mood: Anxious Affect: Blunted Thought process: Thought blocking, poverty of thought Thought Content: Unable to fully assess; pt does not usually express her thoughts/feelings, short answers to questions. Cognition: A&O X4 Insight: pt unable or unwilling to discuss her illness currently Judgment: poor Interventions: PRN's used: None Therapeutic interventions: 1:1 assessment, attempted small talk/nonthreatening light conversation to put pt at ease, encouragement of food and fluids; encouragement of self care, encouragement to attend groups, maintained a safe and therapeutic environment, Q 15 min. safety checks. Restraints/seclusion/emergency medication: N/A Justification of Continued Inpatient Treatment: Pt. requires interruption of current crisis, medication adjustments, and the scheduling of out-patient appointments before she will be ready to D/C home. Addendum: 05/15/18 at 1746 by Nirali Lea" Woodman FAITH Pt ate over 1/2 of cheese quesadilla the tech requested for her, also drank 100% of dinner protein shake.
[2018-05-15 20:00] VITALS: BP 110/68
[2018-05-15] MEDS: prazosin 1mg capsule PO SCH (21:22)
[2018-05-15] MEDS: OLANZapine 2.5MG tablet PO SCH (21:23)
--- NOTE | 2018-05-16 00:21 | NUR ---
RN progress note: Chief Complaint: "I was having mental changes. My brought me here for help." Legal hold: None Client on voluntary status for DTS. Report received from nurse Dozier with use of SBAR. Why are they here: The patient was having mental and behavioral changes, so was brought in by to be evaluated and treated. Diagnosis/presenting symptoms:Bipolar with gelacio, paranoia, delirium, and possible effects from PTSD. Assessment: What has happened this shift: The patient was found in her room sleeping at change of shift. She woke easily for 1:1 assessment. Patient reports that she is "feeling better today. I can respond better." The patient says that she went to groups and was able to participate. She also states that she's noticing changes but they are gradual. The patient doesn't appear as disoriented as in the past, and still exhibits orofacial and hand and foot movements. She wants to go home. "I've been blessed to have a to return to." The patient remained isolated to her room all night. S/I, H/I: Passive SI. Denies HI. A/VH: Denies Sleep: States that she didn't sleep well last night. ADL's: independent with prompting. Group attendance: No groups tonight. Were meds taken: Compliant Any med S/E: None noted. Mental Status Exam Appearance: Short, overweight woman in street clothes with reddish blonde hair that is braided. Eye contact: Good Behavior: Laying in bed under the covers. Speech: Clear, low volume. Mood: "Lot better today." Affect: Constricted, anxious. Thought process: Responds appropriately Thought Content: "I want to go home." Cognition: A/O Insight: Fair Judgment: Intact Interventions PRN's used: None Therapeutic interventions: 1:1, positive reinforcement, medication administration, q15 minute visual checks. Restraints/seclusion/emergency medication: None. Justification of Continued Inpatient Treatment: The patient's response to medication changes is inconsistent, and she is not yet stable. She would be at risk for readmission if discharged before she is stabilized.
[2018-05-16] MEDS: atorvastatin 20mg tablet PO SCH (07:23)
[2018-05-16] MEDS: buPROPion SR 150mg tablet PO SCH ×2 (07:23→13:14)
[2018-05-16] MEDS: levoTHYROXINE 75mcg tablet PO SCH (07:23)
[2018-05-16] MEDS: METHYLFOLATE 15 MG PO SCH (07:30)
[2018-05-16] MEDS: LORazepam 0.5 MG tablet PO SCH ×3 (07:33→20:30)
[2018-05-16 08:00] VITALS: BP 106/69
[2018-05-16] MEDS: Protein Shake (high protein) 240ml (8oz) cup PO SCH ×3 (08:00→18:00)
[2018-05-16] MEDS ORDERED: PRAZ1CAP5 PO (16:28)
[2018-05-16] MEDS ORDERED: OLAN2.5T28 PO (16:28)
[2018-05-16] MEDS ORDERED: NUT.237L32 PO (16:28)
[2018-05-16] MEDS ORDERED: BUPR-84 PO (16:28)
[2018-05-16] MEDS ORDERED: ATOR40TA71 PO (16:28)
[2018-05-16] MEDS ORDERED: LEVO75TA56 PO (16:28)
[2018-05-16] MEDS ORDERED: LEVO1CAP PO (16:28)
[2018-05-16] MEDS ORDERED: ATI0.5T PO ×2 (16:28)
--- NOTE | 2018-05-16 17:58 | NUR ---
Nursing Progress Note: Chief Complaint: "I was having mental changes. My brought me here for help." Legal hold: None Client on voluntary status for DTS. Report received from Benjamín FAITH with use of SBAR. Why are they here: The patient was having mental and behavioral changes, so was brought in by to be evaluated and treated. Diagnosis/presenting symptoms:Bipolar Depression/Delirium--, paranoia, and possible effects from PTSD. Assessment: What has happened this shift: Patient presents in her room resting at change of shift. She is calm and friendly during meeting. She reports that she is doing well but does become anxious during difficult times with other patients on the unit. To relieve this she relaxes in her room. She is observed walking during calm times. She drinks all of both of her protein drinks. She denies any needs and happily reports that she will be going home with her tomorrow. S/I, H/I: none reported A/VH: none reported Sleep: denies issues with sleep and rests during the day ADL's: independent Group attendance: No groups today Were meds taken: Compliant Any med S/E: None reported or observed Mental Status Exam Appearance: dressed appropriate, hair brushed and clean Eye contact: direct Behavior: calm, friendly and cooperative Speech: Clear, soft tone Mood: good Affect: Constricted with occasionally softening and smiles Thought process: WNL Thought Content: goal directed Cognition: A/O Insight: good Judgment: good Interventions PRN's used: None Therapeutic interventions: 1:1 therapeutic conversation, positive reinforcement, medication administration, q15 minute visual checks. Restraints/seclusion/emergency medication: None. Justification of Continued Inpatient Treatment: There may be some improvement and she is working now with [facility] on PTSD therapy techniques. However, she would be at risk for readmission if discharged before she is stabilized.
[2018-05-16 19:53] VITALS: BP 123/77
[2018-05-16] MEDS: prazosin 1mg capsule PO SCH (20:30)
[2018-05-16] MEDS: OLANZapine 2.5MG tablet PO SCH (20:30)
--- NOTE | 2018-05-17 05:11 | NUR ---
RN progress note: Chief Complaint: "I was having mental changes. My brought me here for help." Legal hold: None Client on voluntary status for DTS. Report received from nurse Dozier with use of SBAR. Why are they here: The patient was having mental and behavioral changes, so was brought in by to be evaluated and treated. Diagnosis/presenting symptoms:Bipolar with gelacio, paranoia, delirium, and possible effects from PTSD. Assessment: What has happened this shift: Pt lying in bed at the start of the shift, was pleasant and cooperative during interaction. Her affect was bright, she was smiling, she did not appear anxious. She is excited about going home tomorrow and states she is happy that she is finally feeling better. She visited with her and then returned to bed. She took her evening meds without problems and slept well throughout the night. S/I, H/I: Passive SI. Denies HI. A/VH: Denies Sleep: pt has slept well throughout the shift ADL's: independent Group attendance: No groups tonight. Were meds taken: yes Any med S/E: denies s/e does have oral facial movement and some movements in her hands and feet consistent with TD. Mental Status Exam Appearance: good hygiene, smiling upon approach Eye contact: Good Behavior: pleasant and cooperative Speech: WNL Mood: "good" Affect: euthymic Thought process: linear Thought Content: excited about being discharged today Cognition: WNL Insight: Fair Judgment: Intact Interventions PRN's used: None Therapeutic interventions: 1:1, medication administration and assessment of effect and side effects to meds, q15 minute visual checks. Restraints/seclusion/emergency medication: None. Justification of Continued Inpatient Treatment: Pt is scheduled for discharge today after multiple medication changes were made to help pt become stable.
[2018-05-17] MEDS: atorvastatin 20mg tablet PO SCH (07:25)
[2018-05-17] MEDS: buPROPion SR 150mg tablet PO SCH (07:25)
[2018-05-17] MEDS: METHYLFOLATE 15 MG PO SCH (07:25)
[2018-05-17] MEDS: levoTHYROXINE 75mcg tablet PO SCH (07:25)
[2018-05-17] MEDS: LORazepam 0.5 MG tablet PO SCH (07:25)
[2018-05-17 08:00] VITALS: BP 106/53
[2018-05-17] MEDS: Protein Shake (high protein) 240ml (8oz) cup PO SCH (08:52)
--- NOTE | 2018-05-17 12:19 | NUR ---
DISCHARGE NOTE Patient awake, lying in bed at change of shift. Met with RN for 1:1 assessment at the bedside. Pt reports readiness for discharge. Appears slightly anxious, but denies feeling anxious. Does not appear to be in any physical or emotional distress. Denies S/I. Overall, symptoms have lessened since admit. Educated patient on importance of medication compliance and reviewed medication instructions with patient and her . Instructed on F/U appointments and after care, which can be found in the discharge packet. No Nicotine replacements needed. Nasal MRSA swab collected. Pt belongings inventoried and returned to patient along with her medications (delivered by [facility]) and meds stored in pharmacy. Pt ambulated off the unit at 1210 accompanied by her who is driving her home.
== END 2018-05-17 12:10 | disposition home or self-care (01) | DRG 885 ==
LOC: ADULT MH 08:50
PROVIDERS: ADMIT Psychiatry & Neurology Psychiatry; ATTEND Hospitalist
DX: F31.5 Bipolar disorder, current episode depressed, severe, with psychotic features (principal); G89.4 Chronic pain syndrome; E03.9 Hypothyroidism, unspecified; E78.5 Hyperlipidemia, unspecified; E66.9 Obesity, unspecified; Z79.899 Other long term (current) drug therapy; Z88.0 Allergy status to penicillin; Z80.1 Family history of malignant neoplasm of trachea, bronchus and lung; Z68.32 Body mass index [BMI] 32.0-32.9, adult
CPT/HCPCS: 36415; 80053; 80061; 83036; 87070

== ENCOUNTER 2019-08-27 18:27 | Inpatient (IN) | payer MEDICARE, BC ==
[~2019-08-27] VITALS: Ht 160 cm; Wt 76.0 kg
[~2019-08-27 18:27] MED LIST: ATI0.5T PO; BUPR-72 PO; LEVO1CAP PO; LEVO75TA56 PO; NUT.237L32 PO; OLAN2.5T28 PO; PRAZ1CAP5 PO; [UNRECOGNIZED DRUG - OTHER] VG
--- NOTE | 2019-08-27 18:57 | NUR ---
patient is nonverbal termulous unable to stop movment of hand na d arms, constantly rubs face and licking lips
[2019-08-27] MEDS ORDERED: LORazepam 2 mg/ml vial IM ONE (19:10)
[2019-08-27] MEDS ORDERED: LIOT5TAB10 PO (19:23)
[2019-08-27] MEDS ORDERED: lorazepam PO (19:23)
[2019-08-27] MEDS ORDERED: OLAN10TA19 PO (19:23)
[2019-08-27] MEDS ORDERED: RISP0.253 PO (19:23)
[2019-08-27] MEDS ORDERED: MIRT30TA8 PO (19:23)
[2019-08-27 19:24] LABS: BASOPHILS # (AUTO) 0.1 X10'3 (0-0.2); BASOPHILS % (AUTO) 0.6 % (0-1); EOSINOPHILS # (AUTO) 0.1 X10'3 (0-0.9); EOSINOPHILS % (AUTO) 0.7 % (0-6); HEMATOCRIT 33.4 % (35.0-45.0); HEMOGLOBIN 11.4 g/dl (12.0-16.0); LYMPHOCYTES # (AUTO) 1.4 X10'3 (1.1-4.8); LYMPHOCYTES % (AUTO) 12.2 % (21-51); MEAN CORPUSCULAR HEMOGLOBIN 29.6 PG (27.0-31.0); MEAN CORPUSCULAR HGB CONC 34.1 g/dL (33.0-36.5); MEAN CORPUSCULAR VOLUME 86.7 FL (78-98); MEAN PLATELET VOLUME 5.7 FL (7.4-10.4); MONOCYTES # (AUTO) 0.8 X10'3 (0-0.9); MONOCYTES % (AUTO) 7.1 % (2-12); NEUTROPHILS # (AUTO) 9.4 X10'3 (1.8-7.7); NEUTROPHILS % (AUTO) 79.4 % (42-75); PLATELET COUNT 318 X10'3 (140-440); RED BLOOD COUNT 3.86 X10'6 (4.20-5.60); RED CELL DISTRIBUTION WIDTH 13.7 % (11.5-14.5); WHITE BLOOD COUNT 11.8 X10'3 (4.5-11.0)
--- NOTE | 2019-08-27 19:29 | NUR ---
ekg not acceptable shown to PA too much artifact patient unable to hold self still. Ativan IM given. Patient cooperative does not pull away
[2019-08-27 19:46] LABS: ALANINE AMINOTRANSFERASE 14 U/L (12-78); ALBUMIN 3.4 G/DL (3.4-5.0); ALBUMIN/GLOBULIN RATIO 1.1 (1.1-1.5); ALKALINE PHOSPHATASE 66 IU/L (46-116); ANION GAP 8 (8-16); ASPARTATE AMINO TRANSFERASE 20 U/L (10-37); BILIRUBIN,TOTAL 0.9 MG/DL (0.1-1.0); BLOOD UREA NITROGEN 9 MG/DL (7-18); BUN/CREATININE RATIO 15.8 (6.6-38.0); CALCIUM 8.5 MG/DL (8.5-10.1); CHLORIDE 85 MMOL/L (99-107); CREATININE 0.57 MG/DL (0.40-0.90); GLUCOSE 93 MG/DL (70-104); MAGNESIUM 1.4 MG/DL (1.5-2.4); POTASSIUM 3.9 MMOL/L (3.5-5.1); TOTAL PROTEIN 6.6 G/DL (6.4-8.2); eGFR > 90 ML/MIN
[2019-08-27 19:49] LABS: SODIUM 116 MMOL/L (135-145)
--- NOTE | 2019-08-27 19:50 | NUR ---
critical value Na+ 116, provider aware
[2019-08-27] MEDS ORDERED: normal saline 1000ml 1,000 ML IV ONE (20:03)
[2019-08-27] MEDS ORDERED: LORazepam 2 mg/ml vial IV ONE (20:05)
--- NOTE | 2019-08-27 20:09 | NUR ---
break relief by Chong FAITH
[2019-08-27 20:13] LABS: CLARITY,URINE CLEAR (Clear); COLOR,URINE STRAW (Yellow); GLUCOSE, URINE NEGATIVE (Neg); KETONES,URINE NEGATIVE (Neg); LEUKOCYTE ESTERASE ,URINE NEGATIVE (Neg); NITRITES, URINE NEGATIVE (Neg); OCCULT BLOOD,URINE NEGATIVE (Neg); PROTEIN,URINE NEGATIVE (Neg); UROBILINOGEN,URINE 0.2 E.U/dL (0.2-1.0)
[2019-08-27 20:16] LABS: UA COLLECTION TYPE STRAIGHT CATH
[2019-08-27] MEDS ORDERED: diphenhydrAMINE 50 mg/ml inj IV ONE (20:40)
[2019-08-27] MEDS ORDERED: normal saline 1000ml 1,000 ML IV SCH (21:09)
[2019-08-27] MEDS ORDERED: magnesium hydroxide 30ml (MOM) UD suspension PO PRN (21:10)
[2019-08-27] MEDS ORDERED: mag hydrox/Alum hydrox/simeth 30ml oral suspension PO PRN (21:10)
[2019-08-27] MEDS ORDERED: diphenhydrAMINE 50 mg/ml inj IV PRN (21:10)
[2019-08-27] MEDS ORDERED: acetaminophen 325mg tablet PO PRN (21:10)
--- NOTE | 2019-08-27 21:14 | NUR ---
PT UNABLE TO PROVIDE INFORMATION ON MEDICATIONS. CARE PROVIDER GAVE LIST OF MEDICATIONS AND DOSAGES TO EMS. PROVIDED LIST DID NOT RECONCILE WITH EXTERNAL MEDICATION LIST. MED REC REFLECTS MEDICATION DOSAGES AND ADMINISTRATION FROM CURRENT MEDICATIONS FROM PT PHARMACY
--- NOTE | 2019-08-27 22:35 | NUR ---
Received patient via guerney and transferred to bed with sliding board. Patient is non-verbal, tracks and responds by blinking eyes for yes and shakes head for no answers. VSS, no respiratory distress.
[2019-08-27 23:30] VITALS: BP 144/57
[2019-08-28 05:13] LABS: BASOPHILS % (AUTO) 0.3 % (0-1); EOSINOPHILS # (AUTO) 0.1 X10'3 (0-0.9); EOSINOPHILS % (AUTO) 1.3 % (0-6); HEMATOCRIT 36.3 % (35.0-45.0); HEMOGLOBIN 12.6 g/dl (12.0-16.0); LYMPHOCYTES # (AUTO) 1.8 X10'3 (1.1-4.8); LYMPHOCYTES % (AUTO) 17.2 % (21-51); MEAN CORPUSCULAR HEMOGLOBIN 30.5 PG (27.0-31.0); MEAN CORPUSCULAR HGB CONC 34.8 g/dL (33.0-36.5); MEAN CORPUSCULAR VOLUME 87.6 FL (78-98); MEAN PLATELET VOLUME 6.2 FL (7.4-10.4); MONOCYTES # (AUTO) 0.8 X10'3 (0-0.9); MONOCYTES % (AUTO) 7.9 % (2-12); NEUTROPHILS # (AUTO) 7.5 X10'3 (1.8-7.7); NEUTROPHILS % (AUTO) 73.3 % (42-75); PLATELET COUNT 343 X10'3 (140-440); RED BLOOD COUNT 4.15 X10'6 (4.20-5.60); RED CELL DISTRIBUTION WIDTH 13.9 % (11.5-14.5); WHITE BLOOD COUNT 10.3 X10'3 (4.5-11.0)
[2019-08-28 05:14] LABS: ALANINE AMINOTRANSFERASE 14 U/L (12-78); ALBUMIN 3.6 G/DL (3.4-5.0); ALBUMIN/GLOBULIN RATIO 0.9 (1.1-1.5); ALKALINE PHOSPHATASE 72 IU/L (46-116); ANION GAP 8 (8-16); ASPARTATE AMINO TRANSFERASE 31 U/L (10-37); BLOOD UREA NITROGEN 6 MG/DL (7-18); BUN/CREATININE RATIO 9.8 (6.6-38.0); CALCIUM 9.1 MG/DL (8.5-10.1); CHLORIDE 100 MMOL/L (99-107); CREATININE 0.61 MG/DL (0.40-0.90); GLUCOSE 87 MG/DL (70-104); SODIUM 134 MMOL/L (135-145); TOTAL PROTEIN 7.5 G/DL (6.4-8.2); eGFR > 90 ML/MIN
[2019-08-28 05:19] LABS: POTASSIUM 3.7 MMOL/L (3.5-5.1)
--- NOTE | 2019-08-28 05:43 | NUR ---
Patient has been non-verbal all night. During guillermina-care, patient verbalized "can you please scoot me up". Patient stated that she has episodes of being non-verbal and not able to communicate how often. She is alert to name, time and place. Able to obtain Pritesh's phone number #[phone].
--- NOTE | 2019-08-28 06:53 | NUR ---
Problems reprioritized. Patient report given, questions answered & plan of care reviewed with Ely FAITH.
--- NOTE | 2019-08-28 06:55 | NUR ---
Patient in room RELL 358. I have received report from Hoa FAITH and had the opportunity to ask questions and assume patient care.
[2019-08-28 07:00] VITALS: BP 134/69
[2019-08-28] MEDS ORDERED: heparin, porcine 5000 units/ml vial SQ SCH (08:00)
[2019-08-28] MEDS ORDERED: mirtazapine 15mg tablet PO SCH (08:00)
[2019-08-28] MEDS ORDERED: liothyronine sod 5mcg tablet PO SCH (08:00)
[2019-08-28] MEDS ORDERED: magnesium Cl slow-release 64mg tablet PO SCH (08:00)
[2019-08-28] MEDS ORDERED: LORazepam 1 MG tablet PO SCH (08:00)
[2019-08-28] MEDS ORDERED: risperiDONE 0.25mg tablet PO SCH (08:00)
[2019-08-28 11:45] VITALS: BP 118/67
--- NOTE | 2019-08-28 11:56 | NUR ---
patient seen by Dr Cabrera is for discharge. Patient alert and orientated, speaking in full sentences, All DC instructions given to patient. This staff member talked with with regards DC. patient appears stable for discharge. Dc home via private car with spouse to home.
== END 2019-08-28 11:50 | disposition home or self-care (01) | DRG 641 ==
LOC: ER 18:28 → ED HOLD 21:09 → SUR 3N 22:23
PROVIDERS: ADMIT Internal Medicine; ATTEND Internal Medicine
DX: E87.1 Hypo-osmolality and hyponatremia (principal); F31.4 Bipolar disorder, current episode depressed, severe, without psychotic features; G89.29 Other chronic pain; T43.95XA Adverse effect of unspecified psychotropic drug, initial encounter; E03.9 Hypothyroidism, unspecified; Z88.0 Allergy status to penicillin; Z79.899 Other long term (current) drug therapy; Y92.89 Other specified places as the place of occurrence of the external cause
CPT/HCPCS: 36415; 71045; 80053; 81003; 83735; 83880; 84484; 85025; 85610; 87081; 93005; 99285; G0378; J1200; J1644; J2060; J7030

== ENCOUNTER 2019-10-10 11:43 | Emergency (ER) | payer MEDICARE, BC ==
[~2019-10-10] VITALS: Ht 157.5 cm; Wt 82.0 kg
[~2019-10-10 11:43] MED LIST changes: -ATI0.5T PO; -BUPR-72 PO; -LEVO75TA56 PO; +LIOT5TAB10 PO; +OLAN10TA19 PO; -OLAN2.5T28 PO; +RISP0.253 PO; +lorazepam PO
[2019-10-10 12:26] LABS: BASOPHILS % (AUTO) 0.6 % (0-1); EOSINOPHILS % (AUTO) 0.5 % (0-6); HEMATOCRIT 39.5 % (35.0-45.0); HEMOGLOBIN 13.4 g/dl (12.0-16.0); LYMPHOCYTES # (AUTO) 1.6 X10'3 (1.1-4.8); LYMPHOCYTES % (AUTO) 20.7 % (21-51); MEAN CORPUSCULAR HEMOGLOBIN 30.1 PG (27.0-31.0); MEAN CORPUSCULAR VOLUME 88.5 FL (78-98); MEAN PLATELET VOLUME 6.1 FL (7.4-10.4); MONOCYTES # (AUTO) 0.7 X10'3 (0-0.9); MONOCYTES % (AUTO) 9.6 % (2-12); NEUTROPHILS # (AUTO) 5.2 X10'3 (1.8-7.7); NEUTROPHILS % (AUTO) 68.6 % (42-75); PLATELET COUNT 370 X10'3 (140-440); RED BLOOD COUNT 4.46 X10'6 (4.20-5.60); RED CELL DISTRIBUTION WIDTH 13.8 % (11.5-14.5); WHITE BLOOD COUNT 7.6 X10'3 (4.5-11.0)
[2019-10-10 12:28] LABS: PARTIAL THROMBOPLASTIN TIME 31 SECONDS (22-32)
[2019-10-10 12:30] LABS: ALANINE AMINOTRANSFERASE 18 U/L (12-78); ALBUMIN/GLOBULIN RATIO 1.1 (1.1-1.5); ALKALINE PHOSPHATASE 81 IU/L (46-116); ANION GAP 14 (8-16); ASPARTATE AMINO TRANSFERASE 18 U/L (10-37); BILIRUBIN,TOTAL 0.6 MG/DL (0.1-1.0); BLOOD UREA NITROGEN 10 MG/DL (7-18); BUN/CREATININE RATIO 13.3 (6.6-38.0); CALCIUM 8.9 MG/DL (8.5-10.1); CHLORIDE 93 MMOL/L (99-107); CREATININE 0.75 MG/DL (0.40-0.90); GLUCOSE 100 MG/DL (70-104); POTASSIUM 3.8 MMOL/L (3.5-5.1); SODIUM 128 MMOL/L (135-145); TOTAL CARBON DIOXIDE 21.3 MMOL/L (24-32); TOTAL PROTEIN 7.8 G/DL (6.4-8.2); eGFR 77 ML/MIN
[2019-10-10 13:36] LABS: CLARITY,URINE CLEAR (Clear); COLOR,URINE STRAW (Yellow); GLUCOSE, URINE NEGATIVE (Neg); KETONES,URINE NEGATIVE (Neg); LEUKOCYTE ESTERASE ,URINE NEGATIVE (Neg); NITRITES, URINE NEGATIVE (Neg); OCCULT BLOOD,URINE TRACE-INTACT (Neg); PH,URINE 7.5 (4.8-8.0); PROTEIN,URINE NEGATIVE (Neg); UROBILINOGEN,URINE 0.2 E.U/dL (0.2-1.0)
[2019-10-10 13:39] LABS: UA COLLECTION TYPE CLN CATCH MIDSTREAM
[2019-10-10 13:44] LABS: BACTERIA,URINE FEW /HPF (Neg); RBC,URINE NONE SEEN /HPF (0-2); SQUAMOUS EPITHELIAL CELL,UR FEW /LPF (FEW); WBC,URINE NONE SEEN /HPF (0-4)
[2019-10-10 13:46] LABS: URINE AMPHETAMINE SCREEN NEGATIVE (Neg); URINE BARBITUATE SCREEN NEGATIVE (Neg); URINE BENZODIAZEPINES SCREEN NEGATIVE (Neg); URINE CANNABINOID SCREEN NEGATIVE (Neg); URINE COCAINE SCREEN NEGATIVE (Neg); URINE METHADONE SCREEN NEGATIVE (Neg); URINE OPIATE SCREEN NEGATIVE (Neg); URINE PHENCYCLIDINE SCREEN NEGATIVE (Neg)
[2019-10-10] MEDS ORDERED: LORazepam 1 MG tablet PO ONE (16:45)
[2019-10-10] MEDS ORDERED: LORA2TAB96 PO (16:57)
[2019-10-10 17:17] VITALS: BP 146/91
== END 2019-10-10 17:18 | disposition home or self-care (01) ==
LOC: ER 11:43
DX: F29 Unspecified psychosis not due to a substance or known physiological condition (principal); G89.29 Other chronic pain; F31.9 Bipolar disorder, unspecified; Z88.0 Allergy status to penicillin; Z79.899 Other long term (current) drug therapy
CPT/HCPCS: 36415; 70450; 71045; 80053; 80305; 81001; 84439; 84443; 85025; 85610; 85730; 93005; 99285